=== PATIENT | female | born 1950 | race Caucasian/White ===

== ENCOUNTER 2018-06-30 11:15 | Emergency (ER) | payer MEDICARE, MEDICAID ==
[~2018-06-30] VITALS: Ht 162.6 cm; Wt 99.8 kg
[~2018-06-30 11:15] MED LIST: ALPR1T PO; BACL10TA PO; CLON0.5T3 PO; HYDR-3720 PO; IBUP-15 PO; LISI1TAB PO; LISI1TAB10 PO; LISI20TA PO; OMEP-10 PO; PHEN37.555 PO; SIMV20TA3 PO; TEMA7.5C PO; TEMA7.5C2 PO; TRAM50TA2 PO; TRAZ50TA67 PO; VILA40TA PO
--- NOTE | 2018-06-30 11:29 | ED Cough/URI ---
General Chief Complaint: Respiratory Problems Stated Complaint: COPD;SOB Source: patient Exam Limitations: no limitations History of Present Illness Date Seen by Provider: Jun 30, 2018 Time Seen by Provider: 11:26 Initial Comments Patient driven to ER by private vehicle by [facility] staff with reports of hypoxia. Patient had a regularly scheduled visit today at [facility]. She was noticed to have a pulse oximetry reading of 83% on room air. She does smoke cigarettes about one pack per day. She also recently returned from [place] visiting her sister who is dying of COPD. While there she began smoking more than usual. Upon arrival back to [place] she reports a productive cough and worsening shortness of breath. However, she states that she's had an increase in productive cough and shortness of breath and wheezing for about 3 weeks. She's also had some rhinorrhea. No fevers or chills. No swelling in either of her leg. She was given 3 L of oxygen per nasal cannula and driven to the emergency room. Timing/Duration: constant, getting worse Severity/Quality: moderate Prior Episodes/Possible Cause: occasional episodes Modifying Factors: Improves With Coughing Associated Symptoms: cough, nasal congestion, shortness of breath, wheezing Allergies and Home Medications Allergies Coded Allergies: NKANo Known Allergies (Verified Allergy, Unknown, 11/13/08) fentanyl (Unverified Allergy, Unknown, 01/25/13) Uncoded Allergies: phentanyl (Allergy, Unknown, 06/30/18) Home Medications Albuterol Sulfate 2.5 Mg/3 Ml Vial.neb, 2.5 MG IH Q4H PRN for WHEEZING Prescribed by: ZARA JIMENEZ on 06/30/18 1304 Alprazolam 1 Mg Tablet, 1 MG PO TID PRN, (Reported) ANXIETY Azithromycin 250 Mg Tablet, 250 MG PO UD TAKE 2 TABLETS ON DAY ONE THEN TAKE 1 TABLET DAILY FOR FOUR MORE DAYS Prescribed by: ZARA JIMENEZ on 06/30/18 1304 Hctz/Lisinopril 1 Tab Tablet, 1 TAB PO DAILY, (Reported) Hydrocodone Bit/Acetaminophen 1 Ea Tab, 1 TAB PO QID PRN, (Reported) MODERATE PAIN Ibuprofen 200 Mg Tablet, 400 MG PO Q4HR PRN, (Reported) MILD PAIN Omeprazole 20 Mg Capsule.dr, 20 MG PO DAILY, (Reported) Prednisone 20 Mg Tab, 40 MG PO DAILY Prescribed by: ZARA JIMENEZ on 06/30/18 1304 Simvastatin 20 Mg Tablet, 20 MG PO HS, (Reported) Patient Home Medication List Home Medication List Reviewed: Yes Review of Systems Review of Systems Constitutional: see HPI; No chills, No fever EENTM: see HPI Respiratory: see HPI, cough, short of breath, wheezing Cardiovascular: no symptoms reported Genitourinary: no symptoms reported Musculoskeletal: no symptoms reported Skin: no symptoms reported Psychiatric/Neurological: No Symptoms Reported Hematologic/Lymphatic: No Symptoms Reported Immunological/Allergic: no symptoms reported Past Gkvfmtg-Zjopgv-Cbdrie Hx Immunizations Up To Date Date of Influenza Vaccine: Nov 22, 2011 Past Medical History Reproductive Disorders: No Physical Exam Vital Signs - First Documented 06/30/18 11:23 Pulse 78 Resp 22 B/P (MAP) 126/71 (89) Pulse Ox 93 O2 Delivery Room Air Capillary Refill : Height: '" Weight: lbs. oz. kg; BMI Method:Stated General Appearance: WD/WN, no apparent distress Eyes: Bilateral Eye Normal Inspection, Bilateral Eye PERRL HEENT: PERRL/EOMI, normal ENT inspection Neck: non-tender, full range of motion Respiratory: no accessory muscle use, decreased breath sounds, wheezing Cardiovascular: regular rate, rhythm, no edema, no murmur Gastrointestinal: normal bowel sounds, non tender, soft Extremities: normal range of motion, non-tender, normal capillary refill Neurologic/Psychiatric: alert, normal mood/affect, oriented x 3 Skin: normal color, warm/dry Progress/Results/Core Measures Suspected Sepsis SIRS Temperature: Pulse: Respiratory Rate: Laboratory Tests 06/30/18 11:25: White Blood Count 7.6 Blood Pressure / Mean: Laboratory Tests 06/30/18 11:25: Creatinine 0.66, Platelet Count 242, Total Bilirubin 0.3 Results/Orders Lab Results Laboratory Tests Test 06/30/18 11:25 Range/Units White Blood Count 7.6 4.3-11.0 10^3/uL Red Blood Count 4.74 4.35-5.85 10^6/uL Hemoglobin 14.0 11.5-16.0 G/DL Hematocrit 43 35-52 % Mean Corpuscular Volume 91 80-99 FL Mean Corpuscular Hemoglobin 30 25-34 PG Mean Corpuscular Hemoglobin Concent 33 32-36 G/DL Red Cell Distribution Width 13.9 10.0-14.5 % Platelet Count 242 130-400 10^3/uL Mean Platelet Volume 8.6 7.4-10.4 FL Neutrophils (%) (Auto) 53 42-75 % Lymphocytes (%) (Auto) 35 12-44 % Monocytes (%) (Auto) 9 0-12 % Eosinophils (%) (Auto) 3 0-10 % Basophils (%) (Auto) 0 0-10 % Neutrophils # (Auto) 4.0 1.8-7.8 X 10^3 Lymphocytes # (Auto) 2.6 1.0-4.0 X 10^3 Monocytes # (Auto) 0.7 0.0-1.0 X 10^3 Eosinophils # (Auto) 0.2 0.0-0.3 10^3/uL Basophils # (Auto) 0.0 0.0-0.1 10^3/uL Sodium Level 140 135-145 MMOL/L Potassium Level 3.6 3.6-5.0 MMOL/L Chloride Level 99 98-107 MMOL/L Carbon Dioxide Level 30 21-32 MMOL/L Anion Gap 11 5-14 MMOL/L Blood Urea Nitrogen 12 7-18 MG/DL Creatinine 0.66 0.60-1.30 MG/DL Estimat Glomerular Filtration Rate > 60 BUN/Creatinine Ratio 18 Glucose Level 97 70-105 MG/DL Calcium Level 9.6 8.5-10.1 MG/DL Corrected Calcium 9.5 8.5-10.1 MG/DL Total Bilirubin 0.3 0.1-1.0 MG/DL Aspartate Amino Transf (AST/SGOT) 20 5-34 U/L Alanine Aminotransferase (ALT/SGPT) 21 0-55 U/L Alkaline Phosphatase 79 40-136 U/L Total Protein 6.7 6.4-8.2 GM/DL Albumin 4.1 3.2-4.5 GM/DL My Orders Orders - ZARA 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 Cbc With Automated Diff (06/30/18 11:24) Comprehensive Metabolic Panel (06/30/18 11:24) Iv Heplock-Insert (Order) (06/30/18 11:24) Chest 1 View, Ap/Pa Only (06/30/18 11:24) Ct Angio Chest W (06/30/18 11:24) Albuterol/Ipra Inhalation Soln (Duoneb I (06/30/18 11:30) Svn Small Volume Nebulizer (06/30/18 11:24) Methylprednisolone Sod Succ (Solu-Medrol (06/30/18 11:30) Albuterol Pre-Mix Nebs (Rt) (Proventil (06/30/18 11:30) Svn Small Volume Nebulizer (06/30/18 11:24) Iohexol Injection (Omnipaque 350 Mg/Ml 1 (06/30/18 12:15) Ns (Ivpb) (Sodium Chloride 0.9%) (06/30/18 12:15) Contrast Received (Contrast Received) (06/30/18 12:30) Albuterol Pre-Mix Nebs (Rt) (Proventil (06/30/18 13:22) Svn Small Volume Nebulizer (06/30/18 13:22) Medications Given in ED Current Medications Medications Dose Ordered Sig/Chester Route Start Time Stop Time Status Last Admin Dose Admin Albuterol/ Ipratropium 3 ml ONCE ONCE INH 06/30/18 11:30 06/30/18 11:31 DC 06/30/18 11:32 3 ML Iohexol 125 ml ONCE ONCE IV 06/30/18 12:15 06/30/18 12:18 DC 06/30/18 12:41 125 ML Methylprednisolone Sodium Succinate 125 mg ONCE ONCE IVP 06/30/18 11:30 06/30/18 11:31 DC 06/30/18 11:43 125 MG Sodium Chloride 250 ml ONCE ONCE IV 06/30/18 12:15 06/30/18 12:18 DC 06/30/18 12:41 80 ML Vital Signs/I&O 06/30/18 06/30/18 06/30/18 11:23 11:54 13:23 Pulse 78 Resp 22 B/P (MAP) 126/71 (89) Pulse Ox 93 92 94 O2 Delivery Room Air Room Air Room Air Capillary Refill : Progress Note : Progress Note 1135-on arrival to ER oxygen was turned off. She is at 91% on room air for greater than 15 minutes. 1301- she has remained without supplemental oxygen during her ER stay. She is still at 91% on room air at rest and this increases to 94% when she speaks. Her lungs are much more clear with much less wheezing after one DuoNeb and 2 albuterol treatments. She states that she also feels like she is breathing much easier. There is no need to admit her, CT angiogram is unremarkable and there is no pneumonia. We'll do outpatient steroids, nebulizer, antibiotics follow-up. Diagnostic Imaging Diagonstic Imaging: Xray Comments NAME: FRANCE FOLEY [facility] REC#: [id number] PT STATUS: REG ER : 1950 PHYSICIAN: ZARA JIMENEZ APRN ADMIT DATE: 06/30/18/ER Draft Date of Exam:06/30/18 CHEST 1 VIEW, AP/PA ONLY INDICATION: Cough and congestion. TIME OF EXAM: 11:57 a.m. Correlation is made with prior study from 05/23/2012. FINDINGS: The heart size is normal. The pulmonary vascularity is unremarkable. The lungs are clear. No infiltrate, effusion or pneumothorax is detected. IMPRESSION: No acute cardiopulmonary process is detected. Dictated on workstation # [id number] Dict: 06/30/18 1209 Trans: 06/30/18 1211 [id number] Interpreted by: RUSLAN SHAH MD Electronically signed by: NAME: FRANCE FOLEY [facility] REC#: [id number] PT STATUS: REG ER : 1950 PHYSICIAN: ZARA JIMENEZ APRN ADMIT DATE: 06/30/18/ER Draft Date of Exam:06/30/18 CT ANGIO CHEST W PROCEDURE: CT angiography of the chest with contrast. TECHNIQUE: Multiple contiguous axial images were obtained through the chest after uneventful bolus administration of intravenous contrast. Reconstructed CTA MIP acquisitions were also performed. INDICATION: Decreased oxygen saturation and dyspnea. No prior studies are available for comparison. The pulmonary arterial system is without evidence of thromboembolism. No filling defects are seen within central, lobar or segmental branches. The thoracic aorta is normal in caliber. No dissection is seen. No pericardial or pleural fluid is identified. No pulmonary infiltrates, noncalcified nodules or masses are seen. Upper abdomen does show apparent pneumobilia which could be owing to incompetent sphincter. Impression: 1. No evidence of pulmonary embolism or thoracic aortic dissection. 2. Pneumobilia, as described. Dictated on workstation # [id number] Dict: 06/30/18 1247 Trans: 06/30/18 1251 [facility] [id number] Interpreted by: RUSLAN SHAH MD Electronically signed by: Departure Impression Primary Impression: COPD exacerbation Disposition: 01 HOME, SELF-CARE Condition: Stable Departure-Patient Inst. Decision time for Depature: 12:56 Referrals: DEEPAK CARR MD (PCP/Family) Primary Care Physician Patient Instructions: COPD Including Emphysema (DC), Exacerbation of COPD Add. Discharge Instructions: 1. Medication as directed 2. Return to ER for any concerns 3. Follow-up with [facility] on Wednesday. 4. 1 breathing treatments every 4 hours scheduled and an additional treatment every 2 hours if you feel short of breath or excessively queasy. Return to ER for any worsening symptoms. All discharge instructions reviewed with patient and /or family. Voiced understanding. Scripts Albuterol Sulfate (Albuterol Sulfate) 2.5 Mg/3 Ml Vial.neb 2.5 MG IH Q4H PRN for WHEEZING, #25 EA Prov: ZARA JIMENEZ APRN 06/30/18 Azithromycin (Azithromycin) 250 Mg Tablet 250 MG PO UD, #6 TAB TAKE 2 TABLETS ON DAY ONE THEN TAKE 1 TABLET DAILY FOR FOUR MORE DAYS Prov: ZARA JIMENEZ APRN 06/30/18 Prednisone (Prednisone) 20 Mg Tab 40 MG PO DAILY, #8 TAB Prov: ZARA JIMENEZ APRN 06/30/18 ZARA JIMENEZ APRN Jun 30, 2018 11:29
[2018-06-30] MEDS ORDERED: methylPREDNISolone 125 MG (Solu-MEDROL) VIAL IVP ONE (11:30)
[2018-06-30] MEDS ORDERED: RT-ALBUTEROL SULF 2.5 MG/3 ML PRE-MIX VIAL INH SCH ×2 (11:30→13:22)
[2018-06-30] MEDS ORDERED: RT-ALBUTEROL/IPRATROPIUM 3 ML (DUONEB) VIAL INH ONE (11:30)
[2018-06-30 11:51] LABS: BASOPHILS % (AUTO) 0 % (0-10); EOSINOPHILS # (AUTO) 0.2 10^3/uL (0.0-0.3); EOSINOPHILS % (AUTO) 3 % (0-10); HEMATOCRIT 43 % (35-52); LYMPHOCYTES # (AUTO) 2.6 X 10^3 (1.0-4.0); LYMPHOCYTES % (AUTO) 35 % (12-44); MEAN CORPUSCULAR HEMOGLOBIN 30 PG (25-34); MEAN CORPUSCULAR HGB CONC 33 G/DL (32-36); MEAN CORPUSCULAR VOLUME 91 FL (80-99); MEAN PLATELET VOLUME 8.6 FL (7.4-10.4); MONOCYTES # (AUTO) 0.7 X 10^3 (0.0-1.0); MONOCYTES % (AUTO) 9 % (0-12); NEUTROPHILS % (AUTO) 53 % (42-75); PLATELET COUNT 242 10^3/uL (130-400); RED BLOOD COUNT 4.74 10^6/uL (4.35-5.85); RED CELL DISTRIBUTION WIDTH 13.9 % (10.0-14.5); WHITE BLOOD COUNT 7.6 10^3/uL (4.3-11.0)
[2018-06-30 12:09] LABS: ALANINE AMINOTRANSFERASE 21 U/L (0-55); ALBUMIN 4.1 GM/DL (3.2-4.5); ALKALINE PHOSPHATASE 79 U/L (40-136); BILIRUBIN,TOTAL 0.3 MG/DL (0.1-1.0); BUN/CREATININE RATIO 18; CALCIUM 9.6 MG/DL (8.5-10.1); CARBON DIOXIDE 30 MMOL/L (21-32); CHLORIDE 99 MMOL/L (98-107); CREATININE SERUM 0.66 MG/DL (0.60-1.30); GFR ESTIMATED > 60; GLUCOSE 97 MG/DL (70-105); POTASSIUM 3.6 MMOL/L (3.6-5.0); SODIUM 140 MMOL/L (135-145); TOTAL PROTEIN 6.7 GM/DL (6.4-8.2)
--- NOTE | 2018-06-30 12:12 | Diagnostic Imaging Report ---
INDICATION: Cough and congestion. TIME OF EXAM: 11:57 a.m. Correlation is made with prior study from 05/23/2012. FINDINGS: The heart size is normal. The pulmonary vascularity is unremarkable. The lungs are clear. No infiltrate, effusion or pneumothorax is detected. IMPRESSION: No acute cardiopulmonary process is detected. Dictated by: Dictated on workstation # [id number]
[2018-06-30] MEDS ORDERED: NS 250 ML (IVPB) BAG IV ONE (12:15)
[2018-06-30] MEDS ORDERED: IOHEXOL 350 MG/ML 150 ML (OMNIPAQUE 350) VIAL IV ONE (12:15)
[2018-06-30] MEDS ORDERED: RECEIVED CONTRAST (Hold Metformin) IV SCH (12:30)
--- NOTE | 2018-06-30 12:52 | Diagnostic Imaging Report ---
PROCEDURE: CT angiography of the chest with contrast. TECHNIQUE: Multiple contiguous axial images were obtained through the chest after uneventful bolus administration of intravenous contrast. Reconstructed CTA MIP acquisitions were also performed. INDICATION: Decreased oxygen saturation and dyspnea. No prior studies are available for comparison. The pulmonary arterial system is without evidence of thromboembolism. No filling defects are seen within central, lobar or segmental branches. The thoracic aorta is normal in caliber. No dissection is seen. No pericardial or pleural fluid is identified. No pulmonary infiltrates, noncalcified nodules or masses are seen. Upper abdomen does show apparent pneumobilia which could be owing to incompetent sphincter. Impression: 1. No evidence of pulmonary embolism or thoracic aortic dissection. 2. Pneumobilia, as described. Dictated by: Dictated on workstation # [id number]
[2018-06-30] MEDS ORDERED: PRD20T PO (13:04)
[2018-06-30] MEDS ORDERED: AZIT250T12 PO (13:04)
[2018-06-30] MEDS ORDERED: ALBU2.5V4 IH (13:04)
[2018-06-30 13:35] VITALS: BP 121/70
== END 2018-06-30 13:35 | disposition home or self-care (01) ==
LOC: EDUNIT# 11:15 → ER 11:16
DX: J44.1 Chronic obstructive pulmonary disease with (acute) exacerbation (principal); F17.210 Nicotine dependence, cigarettes, uncomplicated; Z79.52 Long term (current) use of systemic steroids; Z88.8 Allergy status to other drugs, medicaments and biological substances; Z79.51 Long term (current) use of inhaled steroids
CPT/HCPCS: 36415; 71045; 71275; 80053; 85025; 94640; 96374

== ENCOUNTER 2019-03-23 19:12 | Emergency (ER) | payer MEDICARE, MEDICAID ==
[~2019-03-23] VITALS: Ht 162.6 cm; Wt 99.8 kg
[~2019-03-23 19:12] MED LIST changes: +ALBU2.5V4 IH; +AZIT250T12 PO; +PRD20T PO
[2019-03-23] MEDS ORDERED: RT-ALBUTEROL/IPRATROPIUM 3 ML (DUONEB) VIAL ONE (19:19)
[2019-03-23 19:26] LABS: ABG BASE EXCESS 7.9 MMOL/L (-2.5-2.5); ABG OXYGEN SATURATION 93 % (94-100); ABG PCO2 45 MMHG (35-45); ABG PH 7.46 (7.37-7.43); ABG PO2 60 MMHG (79-93); ABG TCO2 33.6 MMOL/L (21.0-31.0); ALLENS TEST POSITIVE
[2019-03-23 19:27] LABS: BASOPHILS % (AUTO) 1 % (0-10); EOSINOPHILS # (AUTO) 0.2 10^3/uL (0.0-0.3); EOSINOPHILS % (AUTO) 3 % (0-10); HEMATOCRIT 44 % (35-52); HEMOGLOBIN 14.9 G/DL (11.5-16.0); INSPIRED O2 N; LYMPHOCYTES # (AUTO) 2.6 X 10^3 (1.0-4.0); LYMPHOCYTES % (AUTO) 31 % (12-44); MEAN CORPUSCULAR HEMOGLOBIN 30 PG (25-34); MEAN CORPUSCULAR HGB CONC 34 G/DL (32-36); MEAN CORPUSCULAR VOLUME 90 FL (80-99); MEAN PLATELET VOLUME 8.8 FL (7.4-10.4); MONOCYTES % (AUTO) 12 % (0-12); NEUTROPHILS # (AUTO) 4.5 X 10^3 (1.8-7.8); NEUTROPHILS % (AUTO) 54 % (42-75); PATIENT TEMP 96.7; PLATELET COUNT 286 10^3/uL (130-400); VENTILATOR NO; WHITE BLOOD COUNT 8.4 10^3/uL (4.3-11.0)
[2019-03-23] MEDS ORDERED: CEFU250T80 PO (19:28)
[2019-03-23] MEDS ORDERED: ALBU2.5V4 INH (19:28)
[2019-03-23] MEDS ORDERED: PRED5TAB PO (19:28)
--- NOTE | 2019-03-23 19:28 | ED Respiratory ---
General Chief Complaint: Respiratory Problems Stated Complaint: SOB Source: patient Exam Limitations: no limitations History of Present Illness Date Seen by Provider: Mar 23, 2019 Time Seen by Provider: 19:25 Initial Comments To ER per private vehicle from home with reports of shortness of breath 3 days associated with a cough that is productive and unusual for her. She is currently on Chantix in an attempt to quit smoking, currently still smokes but has only had 3 cigarettes in the past 3 days. No fevers. Does not wear oxygen at home. Timing/Duration: constant, getting worse Severity: moderate Associated Symptoms: cough, shortness of breath, wheezing Allergies and Home Medications Allergies Coded Allergies: NKANo Known Allergies (Verified Allergy, Unknown, 11/13/08) fentanyl (Unverified Allergy, Unknown, 01/25/13) Uncoded Allergies: phentanyl (Allergy, Unknown, 06/30/18) Home Medications Albuterol Sulfate 2.5 Mg/3 Ml Vial.neb, 2.5 MG IH Q4H PRN for WHEEZING Prescribed by: ZARA JIMENEZ on 06/30/18 1304 Albuterol Sulfate 2.5 Mg/3 Ml Vial.neb, 2.5 MG INH Q4H PRN for WHEEZING Prescribed by: ZARA JIMENEZ on 03/23/191927 Alprazolam 1 Mg Tablet, 1 MG PO TID PRN, (Reported) ANXIETY Azithromycin 250 Mg Tablet, 250 MG PO UD TAKE 2 TABLETS ON DAY ONE THEN TAKE 1 TABLET DAILY FOR FOUR MORE DAYS Prescribed by: ZAAR JIMENEZ on 06/30/18 1304 Cefuroxime Axetil 250 Mg Tablet, 250 MG PO BID Prescribed by: ZARA JIMENEZ on 03/23/191927 Hctz/Lisinopril 1 Tab Tablet, 1 TAB PO DAILY, (Reported) Hydrocodone Bit/Acetaminophen 1 Ea Tab, 1 TAB PO QID PRN, (Reported) MODERATE PAIN Ibuprofen 200 Mg Tablet, 400 MG PO Q4HR PRN, (Reported) MILD PAIN Omeprazole 20 Mg Capsule.dr, 20 MG PO DAILY, (Reported) Prednisone 20 Mg Tab, 40 MG PO DAILY Prescribed by: ZARA JIMENEZ on 06/30/18 1304 Prednisone 5 Mg Tablet, 40 MG PO DAILY Prescribed by: ZARA JIMENEZ on 03/23/191927 Simvastatin 20 Mg Tablet, 20 MG PO HS, (Reported) Patient Home Medication List Home Medication List Reviewed: Yes Review of Systems Review of Systems Constitutional: see HPI EENTM: see HPI Respiratory: see HPI, cough, short of breath, wheezing Cardiovascular: no symptoms reported Genitourinary: no symptoms reported Musculoskeletal: no symptoms reported Skin: no symptoms reported Psychiatric/Neurological: No Symptoms Reported Past [place]q-[place] Hx Patient Social History Type Used: Cigarettes 2nd Hand Smoke Exposure: Yes Recent Foreign Travel: No Contact w/Someone Who Travel: No Recent Hopitalizations: No Immunizations Up To Date Tetanus Booster (TDap): Less than 5yrs Date of Influenza Vaccine: Nov 22, 2011 Seasonal Allergies Seasonal Allergies: Yes Past Medical History Surgeries: Yes (carpal tunnel; "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") Section, Gallbladder Respiratory: Yes Sleep Apnea Currently Using CPAP: No Currently Using BIPAP: No Cardiac: Yes High Cholesterol, Hypertension Neurological: Yes (chronic back) Reproductive Disorders: No SPOOLER History: Menopausal Sexually Transmitted Disease: No Genitourinary: No Gastrointestinal: Yes (HERNIA) Hiatal Hernia, Gall Bladder Disease Musculoskeletal: No Degenerate Disk Disease, Chronic Back Pain Endocrine: Yes Diabetes, Non-Insulin dep HEENT: No Cancer: No Psychosocial: Yes Anxiety, Depression Blood Disorders: No Physical Exam Vital Signs - First Documented 03/23/19 03/23/19 19:26 19:30 Temp 96.4 Pulse 75 Resp 26 B/P (MAP) 127/99 (108) Pulse Ox 97 O2 Delivery Room Air Capillary Refill : Height: 5'4.00" Weight: 220lbs. oz. 99.051098mz; BMI Method:Stated General Appearance: WD/WN, mild distress Eyes: Bilateral Eye Normal Inspection, Bilateral Eye PERRL HEENT: PERRL/EOMI, normal ENT inspection Neck: non-tender, full range of motion Respiratory: no respiratory distress, no accessory muscle use Gastrointestinal: normal bowel sounds, non tender, soft Extremities: normal range of motion, non-tender Neurologic/Psychiatric: alert, normal mood/affect, oriented x 3 Skin: normal color, warm/dry Progress/Results/Core Measures Suspected Sepsis SIRS Temperature: Pulse: Respiratory Rate: Laboratory Tests 03/23/19 19:15: White Blood Count 8.4 Blood Pressure / Mean: Laboratory Tests 03/23/19 19:15: Creatinine 0.75, Platelet Count 286, Total Bilirubin 0.2 Results/Orders Lab Results Laboratory Tests Test 03/23/19 19:15 Range/Units White Blood Count 8.4 4.3-11.0 10^3/uL Red Blood Count 4.93 4.35-5.85 10^6/uL Hemoglobin 14.9 11.5-16.0 G/DL Hematocrit 44 35-52 % Mean Corpuscular Volume 90 80-99 FL Mean Corpuscular Hemoglobin 30 25-34 PG Mean Corpuscular Hemoglobin Concent 34 32-36 G/DL Red Cell Distribution Width 13.0 10.0-14.5 % Platelet Count 286 130-400 10^3/uL Mean Platelet Volume 8.8 7.4-10.4 FL Neutrophils (%) (Auto) 54 42-75 % Lymphocytes (%) (Auto) 31 12-44 % Monocytes (%) (Auto) 12 0-12 % Eosinophils (%) (Auto) 3 0-10 % Basophils (%) (Auto) 1 0-10 % Neutrophils # (Auto) 4.5 1.8-7.8 X 10^3 Lymphocytes # (Auto) 2.6 1.0-4.0 X 10^3 Monocytes # (Auto) 1.0 0.0-1.0 X 10^3 Eosinophils # (Auto) 0.2 0.0-0.3 10^3/uL Basophils # (Auto) 0.0 0.0-0.1 10^3/uL Blood Gas Puncture Site LEFT RADIAL Blood Gas Patient Temperature 96.7 Arterial Blood pH 7.46 H 7.37-7.43 Arterial Blood Partial Pressure CO2 45 35-45 MMHG Arterial Blood Partial Pressure O2 60 L 79-93 MMHG Arterial Blood HCO3 32 H 23-27 MMOL/L Arterial Blood Total CO2 33.6 H 21.0-31.0 MMOL/L Arterial Blood Oxygen Saturation 93 L 94-100 % Arterial Blood Base Excess 7.9 H -2.5-2.5 MMOL/L Dwayne Test POSITIVE Blood Gas Ventilator Setting NO Blood Gas Inspired Oxygen N Sodium Level 142 135-145 MMOL/L Potassium Level 3.3 L 3.6-5.0 MMOL/L Chloride Level 96 L 98-107 MMOL/L Carbon Dioxide Level 31 21-32 MMOL/L Anion Gap 15 H 5-14 MMOL/L Blood Urea Nitrogen 12 7-18 MG/DL Creatinine 0.75 0.60-1.30 MG/DL Estimat Glomerular Filtration Rate > 60 BUN/Creatinine Ratio 16 Glucose Level 150 H 70-105 MG/DL Calcium Level 10.3 H 8.5-10.1 MG/DL Corrected Calcium 9.9 8.5-10.1 MG/DL Total Bilirubin 0.2 0.1-1.0 MG/DL Aspartate Amino Transf (AST/SGOT) 11 5-34 U/L Alanine Aminotransferase (ALT/SGPT) 17 0-55 U/L Alkaline Phosphatase 93 40-136 U/L Total Protein 7.5 6.4-8.2 GM/DL Albumin 4.5 3.2-4.5 GM/DL My Orders Orders - ZARA 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 [employer]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 Albuterol/Ipra Inhalation Soln (Duoneb I (03/23/19 19:30) Methylprednisolone Sod Succ (Solu-Medrol (03/23/19 19:30) Svn Small Volume Nebulizer (03/23/19 19:22) Cbc With Automated Diff (03/23/19 19:22) Comprehensive Metabolic Panel (03/23/19 19:22) BNP (03/23/19 19:22) Chest 1 View, Ap/Pa Only (03/23/19 19:22) Ed Iv/Invasive Line Start (03/23/19 19:22) Arterial Blood Gas (03/23/19 19:22) Albuterol/Ipra Inhalation Soln (Duoneb I (03/23/19 19:19) Cephalexin Capsule (Keflex Capsule) (03/23/19 19:30) Rx-Albuterol Inhaler (Rx-Proair) (03/23/19 19:29) Lorazepam Injection (Ativan Injection) (03/23/19 19:45) Potassium Chloride (Tablet) (Klor Con Ta (03/23/19 20:00) Medications Given in ED Current Medications Medications Dose Ordered Sig/Chester Route Start Time Stop Time Status Last Admin Dose Admin Albuterol/ Ipratropium 3 ml ONCE ONCE INH 03/23/19 19:30 03/23/19 19:31 DC 03/23/19 19:26 3 ML Methylprednisolone Sodium Succinate 125 mg ONCE ONCE IVP 03/23/19 19:30 03/23/19 19:31 DC 03/23/19 19:34 125 MG Vital Signs/I&O 03/23/19 03/23/19 19:26 19:30 Temp 96.4 Pulse 75 Resp 26 B/P (MAP) 127/99 (108) Pulse Ox 97 100 O2 Delivery Room Air Nasal Cannula Capillary Refill : Diagnostic Imaging Diagonstic Imaging: Xray Plain Films/CT/US/NM/MRI: chest Comments NAME: FRANCE FOLEY [facility] REC#: [id number] PT STATUS: REG ER : 1950 PHYSICIAN: ZARA JIMENEZ [employer] ENGINEER ADMIT DATE: 03/23/19/ER Signed Date of Exam:03/23/19 CHEST 1 VIEW, AP/PA ONLY INDICATION: Shortness of breath Portable chest 7:33 PM Heart size and pulmonary vascularity are normal. Lungs are clear. There are no effusions or pneumothoraces. IMPRESSION: Negative chest Dictated by: Dictated on workstation # [id number] Dict: 03/23/191939 Trans: 03/23/191941 [facility] [id number] Interpreted by: DEBBIE GREENBERG MD Electronically signed by: DEBBIE GREENBERG MD 03/23/191941 Departure Impression Primary Impression: COPD exacerbation Disposition: 01 HOME, SELF-CARE Condition: Stable Departure-Patient Inst. Decision time for Depature: 19:26 Referrals: ANALY COREA MD (PCP/Family) Primary Care Physician Patient Instructions: Exacerbation of COPD Add. Discharge Instructions: 1. Medication as directed 2. Return to ER for any concerns 3. All discharge instructions reviewed with patient and/or family. Voiced understanding. Scripts Albuterol Sulfate (Albuterol Sulfate) 2.5 Mg/3 Ml Vial.neb 2.5 MG INH Q4H PRN for WHEEZING, #50 EA 1 Refill Prov: ZARA JIMENEZ APRN 03/23/19 Cefuroxime Axetil (Cefuroxime) 250 Mg Tablet 250 MG PO BID, #10 TAB Prov: ZARA JIMENEZ APRN 03/23/19 Prednisone (Prednisone) 5 Mg Tablet 40 MG PO DAILY, #32 TAB Prov: ZARA JIMENEZ APRN 03/23/19 ZARA JIMENEZ APRN Mar 23, 2019 19:28
[2019-03-23] MEDS ORDERED: RX-ALBUTEROL INHALER (PROAIR) 8 GM IH STA (19:29)
[2019-03-23] MEDS ORDERED: CEPHALEXIN 250 MG (KEFLEX) CAP PO ONE (19:30)
[2019-03-23] MEDS ORDERED: RT-ALBUTEROL/IPRATROPIUM 3 ML (DUONEB) VIAL INH ONE (19:30)
[2019-03-23] MEDS ORDERED: methylPREDNISolone 125 MG (Solu-MEDROL) VIAL IVP ONE (19:30)
[2019-03-23] MEDS ORDERED: LORazepam INJ 2 MG/ML (ATIVAN) VIAL IVP PRN (19:45)
--- NOTE | 2019-03-23 19:45 | Diagnostic Imaging Report ---
INDICATION: Shortness of breath Portable chest 7:33 PM Heart size and pulmonary vascularity are normal. Lungs are clear. There are no effusions or pneumothoraces. IMPRESSION: Negative chest Dictated by: Dictated on workstation # [id number]
[2019-03-23 19:53] LABS: ALANINE AMINOTRANSFERASE 17 U/L (0-55); ALBUMIN 4.5 GM/DL (3.2-4.5); ALKALINE PHOSPHATASE 93 U/L (40-136); BILIRUBIN,TOTAL 0.2 MG/DL (0.1-1.0); BUN/CREATININE RATIO 16; CALCIUM 10.3 MG/DL (8.5-10.1); CARBON DIOXIDE 31 MMOL/L (21-32); CHLORIDE 96 MMOL/L (98-107); CREATININE SERUM 0.75 MG/DL (0.60-1.30); GFR ESTIMATED > 60; GLUCOSE 150 MG/DL (70-105); POTASSIUM 3.3 MMOL/L (3.6-5.0); SODIUM 142 MMOL/L (135-145); TOTAL PROTEIN 7.5 GM/DL (6.4-8.2)
[2019-03-23] MEDS ORDERED: KCL 10 MEQ TAB (MICRO K) PO ONE (20:00)
[2019-03-23] MEDS ORDERED: RX-ALBUTEROL NEB 2.5 MG/3 ML PACK #5 IH STA (20:10)
[2019-03-23 20:15] VITALS: BP 129/77
== END 2019-03-23 20:23 | disposition home or self-care (01) ==
LOC: EDUNIT# 19:12 → ER 19:13
DX: J44.1 Chronic obstructive pulmonary disease with (acute) exacerbation (principal); G47.30 Sleep apnea, unspecified; I10 Essential (primary) hypertension; E78.00 Pure hypercholesterolemia, unspecified; E11.9 Type 2 diabetes mellitus without complications; F41.9 Anxiety disorder, unspecified; F32.9 Major depressive disorder, single episode, unspecified; Z88.8 Allergy status to other drugs, medicaments and biological substances; Z79.52 Long term (current) use of systemic steroids; Z78.0 Asymptomatic menopausal state; Z98.890 Other specified postprocedural states; Z87.19 Personal history of other diseases of the digestive system
CPT/HCPCS: 36415; 71045; 80053; 82805; 83880; 85025; 94640

== ENCOUNTER 2019-07-24 08:15 | Emergency (ER) | payer MEDICARE, MEDICAID ==
[~2019-07-24] VITALS: Ht 165 cm; Wt 95.0 kg
[~2019-07-24 08:15] MED LIST changes: +ALBU2.5V4 INH; +CEFU250T80 PO; +PRED5TAB PO
[2019-07-24] MEDS ORDERED: RT-ALBUTEROL/IPRATROPIUM 3 ML (DUONEB) VIAL ONE (08:30)
--- NOTE | 2019-07-24 09:18 | ED Respiratory ---
General Chief Complaint: Respiratory Problems Stated Complaint: SOA Source: patient Exam Limitations: no limitations History of Present Illness Date Seen by Provider: Jul 24, 2019 Time Seen by Provider: 09:14 Initial Comments The patient is a 69-year-old white female who was brought to the emergency room by ambulance with complaints of increasing shortness of breath. She states that she has had COPD for some time. She had stopped smoking for 3 years but has s tarted again. She denies any fever. She reports that over the last several days she has had increasing shortness of breath despite use of nebulizer and occasionally her MDI. She states that she has noted considerable tremulousness after these treatments. Timing/Duration: week, getting worse Prior Episodes/Possible Cause: occasional episodes Modifying Factors: Improves With Albuterol Inhaler, Improves With Albuterol Nebulizer Associated Symptoms: cough, shortness of breath, wheezing Allergies and Home Medications Allergies Coded Allergies: NKANo Known Allergies (Verified Allergy, Unknown, 11/13/08) fentanyl (Unverified Allergy, Unknown, 01/25/13) Uncoded Allergies: phentanyl (Allergy, Unknown, 06/30/18) Home Medications Albuterol Sulfate 2.5 Mg/3 Ml Vial.neb, 2.5 MG IH Q4H PRN for WHEEZING Prescribed by: ZARA JIMENEZ on 06/30/18 1304 Albuterol Sulfate 2.5 Mg/3 Ml Vial.neb, 2.5 MG INH Q4H PRN for WHEEZING Prescribed by: ZARA JIMENEZ on 03/23/191927 Alprazolam 1 Mg Tablet, 1 MG PO TID PRN, (Reported) ANXIETY Azithromycin 250 Mg Tablet, 250 MG PO UD TAKE 2 TABLETS ON DAY ONE THEN TAKE 1 TABLET DAILY FOR FOUR MORE DAYS Prescribed by: ZARA JIMENEZ on 06/30/18 1304 Cefuroxime Axetil 250 Mg Tablet, 250 MG PO BID Prescribed by: ZARA JIMENEZ on 03/23/191927 Hctz/Lisinopril 1 Tab Tablet, 1 TAB PO DAILY, (Reported) Hydrocodone Bit/Acetaminophen 1 Ea Tab, 1 TAB PO QID PRN, (Reported) MODERATE PAIN Ibuprofen 200 Mg Tablet, 400 MG PO Q4HR PRN, (Reported) MILD PAIN Omeprazole 20 Mg Capsule.dr, 20 MG PO DAILY, (Reported) Prednisone 20 Mg Tab, 40 MG PO DAILY Prescribed by: ZARA JIMENEZ on 06/30/18 1304 Prednisone 5 Mg Tablet, 40 MG PO DAILY Prescribed by: ZARA JIMENEZ on 03/23/19 1928 Simvastatin 20 Mg Tablet, 20 MG PO HS, (Reported) Patient Home Medication List Home Medication List Reviewed: Yes Review of Systems Review of Systems Constitutional: see HPI EENTM: no symptoms reported Respiratory: see HPI, dyspnea on exertion Cardiovascular: palpitations (after use of nebulizer) Gastrointestinal: no symptoms reported Genitourinary: no symptoms reported Musculoskeletal: no symptoms reported Skin: no symptoms reported Psychiatric/Neurological: No Symptoms Reported Hematologic/Lymphatic: No Symptoms Reported Immunological/Allergic: no symptoms reported Past Krlyeqc-Kyozta-Zjfkng Hx Patient Social History Type Used: Cigarettes 2nd Hand Smoke Exposure: Yes Recent Hopitalizations: No Immunizations Up To Date Tetanus Booster (TDap): Less than 5yrs Date of Influenza Vaccine: Nov 22, 2011 Seasonal Allergies Seasonal Allergies: Yes Past Medical History Surgeries: Yes (carpal tunnel; "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") Section, Gallbladder Respiratory: Yes Sleep Apnea Currently Using CPAP: No Currently Using BIPAP: No Cardiac: Yes High Cholesterol, Hypertension Neurological: Yes (chronic back) 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 oz. 99.243979ug; BMI Method:Stated General Appearance: mild distress, moderate distress, other (appears older than stated age.) Eyes: Bilateral Eye Normal Inspection HEENT: normal ENT inspection Neck: full range of motion Respiratory: other (no wheezing post DuoNeb treatment. Breath sounds are dist ant. 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, no motor/sensory deficits, alert, normal mood/affect, oriented x 3 Skin: normal color, warm/dry, cyanosis, cool, diaphoresis, damp Lymphatic: no adenopathy Progress/Results/Core Measures Suspected Sepsis SIRS Temperature: Pulse: Respiratory Rate: Laboratory Tests 07/24/19 08:25: White Blood Count 8.1 Blood Pressure / Mean: Laboratory Tests 07/24/19 08:25: Creatinine 0.66, Platelet Count 221, Total Bilirubin 0.3 Results/Orders Lab Results Laboratory Tests Test 07/24/19 08:25 Range/Units White Blood Count 8.1 4.3-11.0 10^3/uL Red Blood Count 4.46 4.35-5.85 10^6/uL Hemoglobin 13.3 11.5-16.0 G/DL Hematocrit 40 35-52 % Mean Corpuscular Volume 90 80-99 FL Mean Corpuscular Hemoglobin 30 25-34 PG Mean Corpuscular Hemoglobin Concent 33 32-36 G/DL Red Cell Distribution Width 13.3 10.0-14.5 % Platelet Count 221 130-400 10^3/uL Mean Platelet Volume 9.4 7.4-10.4 FL Neutrophils (%) (Auto) 70 42-75 % Lymphocytes (%) (Auto) 20 12-44 % Monocytes (%) (Auto) 8 0-12 % Eosinophils (%) (Auto) 2 0-10 % Basophils (%) (Auto) 1 0-10 % Neutrophils # (Auto) 5.6 1.8-7.8 X 10^3 Lymphocytes # (Auto) 1.6 1.0-4.0 X 10^3 Monocytes # (Auto) 0.6 0.0-1.0 X 10^3 Eosinophils # (Auto) 0.2 0.0-0.3 10^3/uL Basophils # (Auto) 0.0 0.0-0.1 10^3/uL Sodium Level 139 135-145 MMOL/L Potassium Level 3.3 L 3.6-5.0 MMOL/L Chloride Level 98 98-107 MMOL/L Carbon Dioxide Level 31 21-32 MMOL/L Anion Gap 10 5-14 MMOL/L Blood Urea Nitrogen 12 7-18 MG/DL Creatinine 0.66 0.60-1.30 MG/DL Estimat Glomerular Filtration Rate > 60 BUN/Creatinine Ratio 18 Glucose Level 113 H 70-105 MG/DL Calcium Level 9.8 8.5-10.1 MG/DL Corrected Calcium 9.6 8.5-10.1 MG/DL Total Bilirubin 0.3 0.1-1.0 MG/DL Aspartate Amino Transf (AST/SGOT) 14 5-34 U/L Alanine Aminotransferase (ALT/SGPT) 12 0-55 U/L Alkaline Phosphatase 77 40-136 U/L Total Protein 7.0 6.4-8.2 GM/DL Albumin 4.2 3.2-4.5 GM/DL My Orders Orders - LEWIS AGUILAR MD Albuterol/Ipra Inhalation Soln (Duoneb I (07/24/19 08:30) Cbc With Automated Diff (07/24/19 09:12) Comprehensive Metabolic Panel (07/24/19 09:12) Chest 1 View, Ap/Pa Only (07/24/19 09:12) Medications Given in ED Current Medications Medications Dose Ordered Sig/Chester Route Start Time Stop Time Status Last Admin Dose Admin Albuterol/ Ipratropium 3 ml STK-MED ONCE .ROUTE 07/24/19 08:30 07/24/19 08:32 DC 07/24/19 08:30 3 ML Vital Signs/I&O 07/24/19 08:36 Pulse Ox 96 O2 Delivery Nasal Cannula Capillary Refill : Departure Communication (Admissions) 0955 the patient is breathing comfortably and states she feels much better. Impression Primary Impression: COPD with exacerbation Disposition: 01 HOME, SELF-CARE Condition: Improved Departure-Patient Inst. Decision time for Depature: 09:56 Referrals: ANALY CALDERON MD (PCP/Family) Primary Care Physician Patient Instructions: Chronic Obstructive Pulmonary Disease (COPD), Including Emphysema Add. Discharge Instructions: All discharge instructions reviewed with patient and/or family. Voiced understanding. Use your nebulizer at least twice daily. The MDI should be carried with you when you leave the home. Take the prednisone taper as directed. See Dr. Calderon in one to 2 weeks. Scripts Prednisone (Prednisone) 20 Mg Tab 20 MG PO DAILY, #11 TAB Take 3 tabs(60mg)daily, decrease by 1/2 tab(10mg)daily. Prov: LEWIS AGUILAR MD 07/24/19 LEWIS AGUILAR MD Jul 24, 2019 09:18
[2019-07-24 09:23] LABS: BASOPHILS % (AUTO) 1 % (0-10); EOSINOPHILS # (AUTO) 0.2 10^3/uL (0.0-0.3); EOSINOPHILS % (AUTO) 2 % (0-10); HEMATOCRIT 40 % (35-52); HEMOGLOBIN 13.3 G/DL (11.5-16.0); LYMPHOCYTES # (AUTO) 1.6 X 10^3 (1.0-4.0); LYMPHOCYTES % (AUTO) 20 % (12-44); MEAN CORPUSCULAR HEMOGLOBIN 30 PG (25-34); MEAN CORPUSCULAR HGB CONC 33 G/DL (32-36); MEAN CORPUSCULAR VOLUME 90 FL (80-99); MEAN PLATELET VOLUME 9.4 FL (7.4-10.4); MONOCYTES # (AUTO) 0.6 X 10^3 (0.0-1.0); MONOCYTES % (AUTO) 8 % (0-12); NEUTROPHILS # (AUTO) 5.6 X 10^3 (1.8-7.8); NEUTROPHILS % (AUTO) 70 % (42-75); PLATELET COUNT 221 10^3/uL (130-400); RED CELL DISTRIBUTION WIDTH 13.3 % (10.0-14.5); WHITE BLOOD COUNT 8.1 10^3/uL (4.3-11.0)
[2019-07-24 09:31] LABS: ALANINE AMINOTRANSFERASE 12 U/L (0-55); ALBUMIN 4.2 GM/DL (3.2-4.5); ALKALINE PHOSPHATASE 77 U/L (40-136); BILIRUBIN,TOTAL 0.3 MG/DL (0.1-1.0); BUN/CREATININE RATIO 18; CALCIUM 9.8 MG/DL (8.5-10.1); CARBON DIOXIDE 31 MMOL/L (21-32); CHLORIDE 98 MMOL/L (98-107); CREATININE SERUM 0.66 MG/DL (0.60-1.30); GFR ESTIMATED > 60; GLUCOSE 113 MG/DL (70-105); POTASSIUM 3.3 MMOL/L (3.6-5.0); SODIUM 139 MMOL/L (135-145)
--- NOTE | 2019-07-24 09:35 | Diagnostic Imaging Report ---
Patient History: Shortness of air. Technique: Single frontal view of the chest Comparison: 03/23/2019 FINDINGS: The lung volumes are normal. No focal consolidation is seen. No large pleural effusion or pneumothorax is seen. The cardiomediastinal silhouette is normal in size and contour. No acute osseous abnormality is seen. IMPRESSION: No acute pulmonary abnormality seen. Dictated by: Dictated on workstation # [id number]
[2019-07-24] MEDS ORDERED: PRD20T PO (09:58)
[2019-07-24] MEDS ORDERED: methylPREDNISolone 125 MG (Solu-MEDROL) VIAL IM ONE (10:00)
[2019-07-24 10:12] VITALS: BP 155/81
== END 2019-07-24 10:12 | disposition home or self-care (01) ==
LOC: EDUNIT# 08:15 → ER 08:16
DX: J44.1 Chronic obstructive pulmonary disease with (acute) exacerbation (principal); I10 Essential (primary) hypertension; E11.9 Type 2 diabetes mellitus without complications; F41.9 Anxiety disorder, unspecified; F32.9 Major depressive disorder, single episode, unspecified; E78.00 Pure hypercholesterolemia, unspecified; F17.200 Nicotine dependence, unspecified, uncomplicated; Z88.5 Allergy status to narcotic agent; Z79.52 Long term (current) use of systemic steroids; Z77.22 Contact with and (suspected) exposure to environmental tobacco smoke (acute) (chronic)
CPT/HCPCS: 36415; 71045; 80053; 85025; 94640; 94760

== ENCOUNTER 2019-10-07 14:47 | Inpatient (IN) | payer MEDICARE, MEDICAID ==
[2019-10-07] VITALS (11 sets, daily range): BP systolic 91–118; BP diastolic 58–78
[~2019-10-07] VITALS: Ht 162.6 cm; Wt 107.0 kg
[2019-10-07] MEDS ORDERED: meTOprolol 5 MG/5 ML (LOPRESSOR) VIAL ONE (15:04)
--- NOTE | 2019-10-07 15:07 | ED Cough/URI ---
General Chief Complaint: Respiratory Problems Stated Complaint: SOA Source: patient Exam Limitations: no limitations History of Present Illness Date Seen by Provider: Oct 07, 2019 Time Seen by Provider: 15:06 Initial Comments To ER with shortness of breath for the past several days. States she has COPD. She was here about 2 weeks ago for the same.States she is supposed to wear oxygen at home but does not, hasn't been taking any of her medications either because she feels like they were making her sick. She follows with Santino Corea from [facility]. She has no known history of atrial fibrillation. States she does want to be intubated if necessary. Timing/Duration: constant, getting worse Severity/Quality: productive cough Associated Symptoms: cough, shortness of breath Allergies and Home Medications Allergies Coded Allergies: NKANo Known Allergies (Verified Allergy, Unknown, 11/13/08) fentanyl (Unverified Allergy, Unknown, 01/25/13) Uncoded Allergies: phentanyl (Allergy, Unknown, 06/30/18) Home Medications Albuterol Sulfate 2.5 Mg/3 Ml Vial.neb, 2.5 MG IH Q4H PRN for WHEEZING Prescribed by: ZARA JIMENEZ on 06/30/18 1304 Albuterol Sulfate 2.5 Mg/3 Ml Vial.neb, 2.5 MG INH Q4H PRN for WHEEZING Prescribed by: ZARA JIMENEZ on 03/23/191927 Alprazolam 1 Mg Tablet, 1 MG PO TID PRN, (Reported) ANXIETY Azithromycin 250 Mg Tablet, 250 MG PO UD TAKE 2 TABLETS ON DAY ONE THEN TAKE 1 TABLET DAILY FOR FOUR MORE DAYS Prescribed by: ZARA JIMENEZ on 06/30/18 1304 Cefuroxime Axetil 250 Mg Tablet, 250 MG PO BID Prescribed by: ZARA JIMENEZ on 03/23/191927 Hctz/Lisinopril 1 Tab Tablet, 1 TAB PO DAILY, (Reported) Hydrocodone Bit/Acetaminophen 1 Ea Tab, 1 TAB PO QID PRN, (Reported) MODERATE PAIN Ibuprofen 200 Mg Tablet, 400 MG PO Q4HR PRN, (Reported) MILD PAIN Omeprazole 20 Mg Capsule.dr, 20 MG PO DAILY, (Reported) Prednisone 20 Mg Tab, 40 MG PO DAILY Prescribed by: ZARA JIMENEZ on 06/30/18 1304 Prednisone 5 Mg Tablet, 40 MG PO DAILY Prescribed by: ZARA JIMENEZ on 03/23/191927 Prednisone 20 Mg Tab, 20 MG PO DAILY Take 3 tabs(60mg)daily, decrease by 1/2 tab(10mg)daily. Prescribed by: LEWIS AGUILAR on 07/24/19957 Simvastatin 20 Mg Tablet, 20 MG PO HS, (Reported) Patient Home Medication List Home Medication List Reviewed: Yes Review of Systems Review of Systems Constitutional: see HPI; No chills, No fever Respiratory: see HPI, cough, dyspnea on exertion, short of breath Cardiovascular: no symptoms reported Genitourinary: no symptoms reported Musculoskeletal: no symptoms reported Skin: no symptoms reported Psychiatric/Neurological: No Symptoms Reported Past Nnfsagm-Ennxwl-Esjvnd Hx Patient Social History Type Used: Cigarettes 2nd Hand Smoke Exposure: Yes Recent Foreign Travel: No Contact w/Someone Who Travel: No Recent Hopitalizations: No Immunizations Up To Date Tetanus Booster (TDap): Less than 5yrs Date of Influenza Vaccine: Nov 22, 2011 Seasonal Allergies Seasonal Allergies: Yes Past Medical History Surgeries: Yes (carpal tunnel; "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") Section, Gallbladder Respiratory: Yes Sleep Apnea Currently Using CPAP: No Currently Using BIPAP: No Cardiac: Yes High Cholesterol, Hypertension Neurological: Yes (chronic back) Reproductive Disorders: No 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 oz. 99.435790fw; 34.00 BMI Method:Stated General Appearance: WD/WN, moderate distress, other (speaks in short phrases. Oxygen saturation 73% with good waveform on arrival. Placed on oxygen mask at 10 L, subsequent increase in SPO2 of 90%. Heart rate narrow complex regular at 150.) HEENT: PERRL/EOMI, normal ENT inspection Neck: non-tender, full range of motion Respiratory: no respiratory distress, no accessory muscle use, decreased breath sounds Cardiovascular: no murmur, tachycardia Gastrointestinal: normal bowel sounds, non tender, soft Extremities: normal range of motion, non-tender Neurologic/Psychiatric: alert, normal mood/affect, oriented x 3 Skin: normal color, warm/dry Focused Exam Lactate Level 10/07/19 15:00: Lactic Acid Level 2.34*H Lactic Acid Level Laboratory Tests Test 10/07/19 15:00 Lactic Acid Level 2.34 MMOL/L (0.50-2.00) *H Progress/Results/Core Measures Suspected Sepsis SIRS Temperature: Pulse: Respiratory Rate: Laboratory Tests 10/07/19 15:00: White Blood Count 46.4*H Blood Pressure / Mean: 10/07/19 15:00: Lactic Acid Level 2.34*H Laboratory Tests 10/07/19 15:00: Creatinine 0.73, INR Comment 1.1, Platelet Count 526H, Total Bilirubin 1.8H Results/Orders Lab Results Laboratory Tests Test 10/07/19 14:58 10/07/19 15:00 Range/Units Blood Gas Puncture Site LT RAD Blood Gas Patient Temperature 100.4 Arterial Blood pH 7.46 H 7.37-7.43 Arterial Blood Partial Pressure CO2 49 H 35-45 MMHG Arterial Blood Partial Pressure O2 66 L 79-93 MMHG Arterial Blood HCO3 34 H 23-27 MMOL/L Arterial Blood Total CO2 35.1 H 21.0-31.0 MMOL/L Arterial Blood Oxygen Saturation 92 L 94-100 % Arterial Blood Base Excess 9.6 H -2.5-2.5 MMOL/L Dwayne Test YES-POS Blood Gas Ventilator Setting NO Blood Gas Inspired Oxygen 6 White Blood Count 46.4 *H 4.3-11.0 10^3/uL Red Blood Count 4.38 4.35-5.85 10^6/uL Hemoglobin 12.8 11.5-16.0 G/DL Hematocrit 38 35-52 % Mean Corpuscular Volume 86 80-99 FL Mean Corpuscular Hemoglobin 29 25-34 PG Mean Corpuscular Hemoglobin Concent 34 32-36 G/DL Red Cell Distribution Width 13.9 10.0-14.5 % Platelet Count 526 H 130-400 10^3/uL Mean Platelet Volume 9.2 7.4-10.4 FL Neutrophils (%) (Auto) 94 H 42-75 % Lymphocytes (%) (Auto) 4 L 12-44 % Monocytes (%) (Auto) 3 0-12 % Eosinophils (%) (Auto) 0 0-10 % Basophils (%) (Auto) 0 0-10 % Neutrophils # (Auto) 43.4 H 1.8-7.8 X 10^3 Lymphocytes # (Auto) 1.7 1.0-4.0 X 10^3 Monocytes # (Auto) 1.2 H 0.0-1.0 X 10^3 Eosinophils # (Auto) 0.0 0.0-0.3 10^3/uL Basophils # (Auto) 0.1 0.0-0.1 10^3/uL Neutrophils % (Manual) 82 % Lymphocytes % (Manual) 4 % Monocytes % (Manual) 6 % Metamyelocytes % 2 % Band Neutrophils 6 % Target Cells SLIGHT Stomatocytes SLIGHT Crenated Cell SLIGHT Prothrombin Time 14.6 12.2-14.7 SEC INR Comment 1.1 0.8-1.4 Sodium Level 135 135-145 MMOL/L Potassium Level 2.9 L 3.6-5.0 MMOL/L Chloride Level 88 L 98-107 MMOL/L Carbon Dioxide Level 31 21-32 MMOL/L Anion Gap 16 H 5-14 MMOL/L Blood Urea Nitrogen 23 H 7-18 MG/DL Creatinine 0.73 0.60-1.30 MG/DL Estimat Glomerular Filtration Rate > 60 BUN/Creatinine Ratio 32 Glucose Level 192 H 70-105 MG/DL Lactic Acid Level 2.34 *H 0.50-2.00 MMOL/L Calcium Level 9.6 8.5-10.1 MG/DL Corrected Calcium 10.4 H 8.5-10.1 MG/DL Total Bilirubin 1.8 H 0.1-1.0 MG/DL Aspartate Amino Transf (AST/SGOT) 90 H 5-34 U/L Alanine Aminotransferase (ALT/SGPT) 56 H 0-55 U/L Alkaline Phosphatase 205 H 40-136 U/L Total Protein 6.6 6.4-8.2 GM/DL Albumin 3.0 L 3.2-4.5 GM/DL My Orders Orders - ZARA JIMENEZ PALLIATIVE CARE NURSE PRACTITIONER Cbc With Automated Diff (10/07/19 15:03) Comprehensive Metabolic Panel (10/07/19 15:03) BNP (10/07/19 15:03) Troponin I (10/07/19 15:03) Ekg Tracing (10/07/19 15:03) Thyroid Stimulating Hormone (10/07/19 15:03) Free T4 (Free Thyroxine) (10/07/19 15:03) Ua Culture If Indicated (10/07/19 15:03) Drug Screen Stat (Urine) (10/07/19 15:03) Protime With Inr (10/07/19 15:03) Ns Iv 1000 Ml (Sodium Chloride 0.9%) (10/07/19 15:15) Methylprednisolone Sod Succ (Solu-Medrol (10/07/19 15:15) Metoprolol Tartrate Injection (Lopressor (10/07/19 15:15) Blood Culture (10/07/19 15:03) Lactic Acid Analyzer (10/07/19 15:03) Ekg Tracing (10/07/19 15:03) Metoprolol Tartrate Injection (Lopressor (10/07/19 15:04) Albuterol/Ipra Inhalation Soln (Duoneb I (10/07/19 15:15) Albuterol Pre-Mix Nebs (Rt) (Proventil (10/07/19 15:15) Svn Small Volume Nebulizer (10/07/19 15:07) Svn Small Volume Nebulizer (10/07/19 15:07) Arterial Blood Gas (10/07/19 15:08) Chest 1 View, Ap/Pa Only (10/07/19 15:12) Manual Differential (10/07/19 15:00) Medications Given in ED Current Medications Medications Dose Ordered Sig/Chester Route Start Time Stop Time Status Last Admin Dose Admin Albuterol Sulfate 12.5 mg ONCE ONCE INH 10/07/19 15:15 10/07/19 15:16 DC 10/07/19 15:17 12.5 MG Albuterol/ Ipratropium 3 ml ONCE ONCE INH 10/07/19 15:15 10/07/19 15:16 DC 10/07/19 15:17 3 ML Methylprednisolone Sodium Succinate 125 mg ONCE ONCE IVP 10/07/19 15:15 10/07/19 15:16 DC 10/07/19 15:08 125 MG Metoprolol Tartrate 5 mg ONCE ONCE IV 10/07/19 15:15 10/07/19 15:16 DC 10/07/19 15:07 5 MG Vital Signs/I&O 10/07/19 10/07/19 14:47 15:07 Temp 38.0 Pulse 151 121 Resp 29 29 B/P (MAP) 115/99 (104) Pulse Ox 90 90 O2 Delivery OxyMask O2 Flow Rate 10.00 50.00 Capillary Refill : Diagnostic Imaging Diagonstic Imaging: Xray Plain Films/CT/US/NM/MRI: chest Comments NAME: [facility] REC#: [id number] PT STATUS: REG ER : 1950 PHYSICIAN: ZARA JIMENEZ APRN ADMIT DATE: 10/07/19/ER Draft Date of Exam:10/07/19 CHEST 1 VIEW, AP/PA ONLY CHEST 1 VIEW, AP/PA ONLY. INDICATION: Shortness of breath. COMPARISON: 07/24/2019. FINDINGS: New mass-like consolidation in the right upper lobe. Small right pleural effusion. No pneumothorax. Stable enlargement of cardiac silhouette. IMPRESSION: 1. New right upper lobe pneumonia. 2. Probable small parapneumonic effusion. 3. Advise follow-up PA and lateral chest radiographs in 4 weeks after appropriate medical management to ensure resolution. Dictated on workstation # [id number] Dict: 10/07/19 1539 Trans: 10/07/19 1541 [id number] Interpreted by: VICKI CABALLERO MD Electronically signed by: Departure Communication (Admissions) 1518- initially started on BiPAP after oxygen mask. Initial settings 12/5, 50% FiO2 rate of 12. Lopressor 5 mg was given IV for the tachycardia with subsequent rate reduction down to 95. EKG repeated. The blood pressure remained stable. 1535-has arrived and states that she does not have oxygen at home but would like to get oxygen. Impression Primary Impression: Respiratory failure Qualified Codes: J96.01 - Acute respiratory failure with hypoxia; J96.02 - Acute respiratory failure with hypercapnia Disposition: ADMITTED INPATIENT Condition: Improved Admissions Decision to Admit Reason: Admit from ER (General) Decision to Admit/Date: Oct 07, 2019 Time/Decision to Admit Time: 15:11 Departure-Patient Inst. Referrals: SANTINO COREA MD (PCP/Family) Primary Care Physician ZARA JIMENEZ APRN Oct 07, 2019 15:07
[2019-10-07 15:11] LABS: BASOPHILS # (AUTO) 0.1 10^3/uL (0.0-0.1); BASOPHILS % (AUTO) 0 % (0-10); EOSINOPHILS % (AUTO) 0 % (0-10); HEMATOCRIT 38 % (35-52); HEMOGLOBIN 12.8 G/DL (11.5-16.0); LYMPHOCYTES # (AUTO) 1.7 X 10^3 (1.0-4.0); LYMPHOCYTES % (AUTO) 4 % (12-44); MEAN CORPUSCULAR HEMOGLOBIN 29 PG (25-34); MEAN CORPUSCULAR HGB CONC 34 G/DL (32-36); MEAN CORPUSCULAR VOLUME 86 FL (80-99); MEAN PLATELET VOLUME 9.2 FL (7.4-10.4); MONOCYTES # (AUTO) 1.2 X 10^3 (0.0-1.0); MONOCYTES % (AUTO) 3 % (0-12); NEUTROPHILS # (AUTO) 43.4 X 10^3 (1.8-7.8); NEUTROPHILS % (AUTO) 94 % (42-75); PLATELET COUNT 526 10^3/uL (130-400); RED CELL DISTRIBUTION WIDTH 13.9 % (10.0-14.5)
[2019-10-07 15:15] LABS: ABG BASE EXCESS 9.6 MMOL/L (-2.5-2.5); ABG OXYGEN SATURATION 92 % (94-100); ABG PCO2 49 MMHG (35-45); ABG PH 7.46 (7.37-7.43); ABG PO2 66 MMHG (79-93); ABG TCO2 35.1 MMOL/L (21.0-31.0)
[2019-10-07] MEDS ORDERED: meTOprolol 5 MG/5 ML (LOPRESSOR) VIAL IV ONE (15:15)
[2019-10-07] MEDS ORDERED: RT-ALBUTEROL/IPRATROPIUM 3 ML (DUONEB) VIAL INH ONE (15:15)
[2019-10-07] MEDS ORDERED: NS IV 1000 ML 1,000 ML IV SCH (15:15)
[2019-10-07] MEDS ORDERED: methylPREDNISolone 125 MG (Solu-MEDROL) VIAL IVP ONE (15:15)
[2019-10-07] MEDS ORDERED: RT-ALBUTEROL SULF 2.5 MG/3 ML PRE-MIX VIAL INH ONE (15:15)
[2019-10-07 15:18] LABS: WHITE BLOOD COUNT 46.4 10^3/uL (4.3-11.0)
[2019-10-07 15:19] LABS: ALLENS TEST YES-POS; INSPIRED O2 6; PATIENT TEMP 100.4; VENTILATOR NO
[2019-10-07 15:24] LABS: INR 1.1 (0.8-1.4); PROTHROMBIN TIME PATIENT 14.6 SEC (12.2-14.7)
[2019-10-07 15:31] LABS: ALANINE AMINOTRANSFERASE 56 U/L (0-55); ALKALINE PHOSPHATASE 205 U/L (40-136); BILIRUBIN,TOTAL 1.8 MG/DL (0.1-1.0); BUN/CREATININE RATIO 32; CALCIUM 9.6 MG/DL (8.5-10.1); CARBON DIOXIDE 31 MMOL/L (21-32); CHLORIDE 88 MMOL/L (98-107); CREATININE SERUM 0.73 MG/DL (0.60-1.30); GFR ESTIMATED > 60; GLUCOSE 192 MG/DL (70-105); POTASSIUM 2.9 MMOL/L (3.6-5.0); SODIUM 135 MMOL/L (135-145); TOTAL PROTEIN 6.6 GM/DL (6.4-8.2)
[2019-10-07 15:42] LABS: BAND NEUTROPHILS 6 %; LYMPHOCYTES % (MANUAL) 4 %; MONOCYTES % (MANUAL) 6 %; NEUTROPHILS % (MANUAL) 82 %
--- NOTE | 2019-10-07 15:42 | Diagnostic Imaging Report ---
CHEST 1 VIEW, AP/PA ONLY. INDICATION: Shortness of breath. COMPARISON: 07/24/2019. FINDINGS: New mass-like consolidation in the right upper lobe. Small right pleural effusion. No pneumothorax. Stable enlargement of cardiac silhouette. IMPRESSION: 1. New right upper lobe pneumonia. 2. Probable small parapneumonic effusion. 3. Advise follow-up PA and lateral chest radiographs in 4 weeks after appropriate medical management to ensure resolution. Dictated by: Dictated on workstation # [id number]
[2019-10-07 15:43] LABS: METAMYELOCYTES % 2 %; TARGET CELLS SLIGHT
[2019-10-07 15:44] LABS: CRENATED RBC SLIGHT; STOMATOCYTES SLIGHT
[2019-10-07 15:52] LABS: FREE T4 (FREE THYROXINE) 0.63 NG/DL (0.70-1.48)
[2019-10-07] MEDS ORDERED: PIPERACILLIN SODIUM/TAZOBACTAM 4.5 GM in NS (IVPB) 100 ML IV ONE (16:15)
--- NOTE | 2019-10-07 16:16 | NUR ---
Kaitlyn Han (sister) [phone].
[2019-10-07] MEDS ORDERED: LACTATED RINGERS 1,000 ML IV ONE (16:46)
[2019-10-07] MEDS: LACTATED RINGERS 1,000 ML IV SCH ×2 (16:50→21:03)
[2019-10-07] MEDS ORDERED: ONDANSETRON 4 MG/2 ML (SDV) Z0FRAN IV PRN (17:00)
[2019-10-07] MEDS ORDERED: diphenhydrAMINE 25 MG TAB (BENADRYL) PO PRN (17:15)
[2019-10-07] MEDS ORDERED: ONDANSETRON 4 MG/2 ML (SDV) Z0FRAN IVP PRN (17:15)
[2019-10-07] MEDS ORDERED: CALCIUM CARBONATE 500 MG (TUMS) TAB.CHEW PO PRN (17:15)
[2019-10-07] MEDS ORDERED: RT-ALBUTEROL/IPRATROPIUM 3 ML (DUONEB) VIAL INH PRN (17:15)
[2019-10-07] MEDS ORDERED: DOCUSATE SODIUM 100 MG (COLACE) CAP PO PRN (17:15)
[2019-10-07] MEDS ORDERED: LOPERAMIDE 2 MG (IMODIUM) TABLET PO PRN (17:15)
[2019-10-07] MEDS ORDERED: guaiFENesin/CODEINE (ROBITUSSIN AC) 10ML UDC PO PRN (17:15)
[2019-10-07] MEDS ORDERED: MELATONIN 3 MG TABLET PO PRN (17:15)
[2019-10-07] MEDS ORDERED: morphine INJ 4 MG/ML 1 ML (VIAL/SYRINGE) IVP PRN (17:15)
--- NOTE | 2019-10-07 17:31 | History & Physical-Hospitalist ---
History of Present Illness HPI/Chief Complaint CC: Pneumonia with sepsis and respiratory insufficiency HPI: This is a 69yoWF clinic patient of [facility] who was in the ER recently treated for AECOPD who continues to smoke who presented today to the ER in respiratory distress with O2 saturation of 64% upon arrival. Patient was found to have sepsis and PNA and AECOPD. Patient was placed on Zosyn and IV steroids and Nebs and O2 and biPAP is required. Patient is receiving IVF per protocol. Dr Murrell and DR Ham are consulted for hypoxia and tachycardia respectively. Unable to obtain any details due to biPAP required. Source: patient, RN/MD, old records Exam Limitations: no limitations Date Seen 10/07/19 Time Seen by a Provider: 17:40 Attending Physician Qian Gonsalves Julie A MD Referring Physician Date of Admission Oct 07, 2019 at 15:42 Home Medications & Allergies Home Medications Reviewed patient Home Medication Reconciliation performed by pharmacy medication reconciliations area intelligence technician and/or nursing. Patients Allergies have been reviewed. 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) Smoking Status: Current Everyday Smoker Type Used: Cigarettes 2nd Hand Smoke Exposure: Yes Recent Foreign Travel: No Contact w/other who traveled: No Recent Hopitalizations: No Recent Infectious Disease Expo: No Immunizations Up To Date Tetanus Booster (TDap): Less than 5yrs Date of Influenza Vaccine: Jul 18, 2019 Seasonal Allergies Seasonal Allergies: Yes Past Medical History Surgeries: Section, Gallbladder Respiratory: Asthma, Chronic Bronchitis, COPD, Emphysema, Pneumonia Currently Using CPAP: No Currently Using BIPAP: No Cardiac: High Cholesterol, Hypertension Reproductive: No Sexually Transmitted Disease: No Menopausal Gastrointestinal: Hiatal Hernia, Gall Bladder Disease Musculoskeletal: Degenerate Disk Disease, Chronic Back Pain Endocrine: Diabetes, Non-Insulin dep Psychosocial: Anxiety, Depression History of Blood Disorders: No Review of Systems Constitutional: see HPI, malaise, weakness Respiratory: cough, dyspnea on exertion, short of breath, wheezing Physical Exam Physical Exam Vital Signs Vital Signs - First Documented 10/07/19 10/07/19 14:47 15:04 Temp 38.0 Pulse 151 Resp 29 B/P (MAP) 115/99 (104) Pulse Ox 90 O2 Delivery OxyMask O2 Flow Rate 10.00 FiO2 50 Capillary Refill : Less Than 3 Seconds Height, Weight, BMI Height: 5'4.00" Weight: 220lbs. oz. 99.537596up; 30.00 BMI Method:Stated General Appearance: WD/WN, Anxious, Chronically ill, Moderate Distress Eyes: Right Eye Normal Inspection, Right Eye PERRL HEENT: PERRL/EOMI, Normal ENT Inspection, Pharynx Normal, Moist Mucous Membranes Neck: Full Range of Motion, Normal Inspection, Non Tender Respiratory: Chest Non Tender, Accessory Muscle Use, Crackles, Decreased Breath Sounds, Wheezing, Other (on biPAP) Cardiovascular: Regular Rate, Rhythm, No Edema, No Gallop, No JVD, No Murmur, Normal Peripheral Pulses Gastrointestinal: Normal Bowel Sounds, No Organomegaly, No Pulsatile Mass, Non Tender, Soft Back: Normal Inspection, No CVA Tenderness, No Vertebral Tenderness Extremity: Normal Capillary Refill, Normal Inspection, Normal Range of Motion, Non Tender, No Calf Tenderness, No Pedal Edema Neurologic/Psychiatric: Alert, Oriented x3, No Motor/Sensory Deficits, Normal Mood/Affect, trade analyst II-XII Norm as Tested Skin: Normal Color, Warm/Dry Lymphatic: No Adenopathy Results Results/Procedures Labs Laboratory Tests 10/07/19 15:00 Patient resulted labs reviewed. Assessment/Plan Admission Diagnosis Assessment: Respiratory insufficiency requiring biPAP Sepsis PNA AECOPD Hypoxia Smoker Leukocytosis profound Tachycardia Hypokalemia DM Chronic back pain Plan: IV abx O2 Nebs biPAP Admission Status: Inpatient Order (span 2 midnights) Reason for Inpatient Admission: Resp failure Diagnosis/Problems Diagnosis/Problems (1) Sepsis (2) Pneumonia (3) Smoker (4) Leukocytosis (5) Tachycardia (6) Respiratory failure Status: Acute Qualifiers: Chronicity: acute Respiratory failure complication: hypoxia and hypercapnia Qualified Codes: J96.01 - Acute respiratory failure with hypoxia; J96.02 - Acute respiratory failure with hypercapnia (7) COPD with exacerbation Status: Acute (8) Hypokalemia (9) Diabetes mellitus Clinical Quality Measures DVT/VTE Risk/Contraindication: Risk Factor Score Per Nursin RFS Level Per Nursing on Admit: 2=Moderate QIAN GONSALVES DO Oct 07, 2019 17:31
[2019-10-07] MEDS ORDERED: inSUlin ASPART (NovoLOG) 1 UNIT/0.01 ML (CHARGE PER UNIT) ONE (18:21)
[2019-10-07] MEDS: POTASSIUM CL 10 MEQ/50 ML IVPB (PRE-MIX) IV SCH ×4 (18:26→21:26)
[2019-10-07] MEDS: ENOXAPARIN 40 MG/0.4 ML (LOVENOX) SYR SC SCH (18:26)
[2019-10-07] MEDS: inSUlin ASPART (NovoLOG) 1 UNIT/0.01 ML (CHARGE PER UNIT) SC PRN (18:27)
[2019-10-07] MEDS: RT-ALBUTEROL/IPRATROPIUM 3 ML (DUONEB) VIAL INH SCH ×2 (19:07→21:39)
[2019-10-07] MEDS: ALPRAZolam 0.25 MG (XANAX) TAB PO PRN (20:08)
[2019-10-07 20:45] LABS: CLARITY,URINE CLEAR; COLOR,URINE AMBER; GLUCOSE, URINE (UA) TRACE (NEGATIVE); KETONES,URINE NEGATIVE (NEGATIVE); LEUKOCYTE ESTERASE ,URINE NEGATIVE (NEGATIVE); NITRITE,URINE POSITIVE (NEGATIVE); PROTEIN,URINE 2+ (NEGATIVE)
[2019-10-07 20:54] LABS: BILIRUBIN,URINE 2+ (NEGATIVE)
[2019-10-07 20:55] LABS: AMORPHOUS SEDIMENT,UR FEW AMOR URATES /LPF; BACTERIA,URINE FEW /HPF
[2019-10-07] MEDS: SENNA W/DOCUSATE (SENOKOT S) TABLET PO SCH (21:26)
[2019-10-07] MEDS: PIPERACILLIN/TAZO 4.5 GM/NS 100 ML IV SCH ×2 (22:49)
[2019-10-07] MEDS: methylPREDNISolone 125 MG (Solu-MEDROL) VIAL IV SCH (23:06)
[2019-10-08] VITALS (24 sets, daily range): BP systolic 89–141; BP diastolic 54–83
[2019-10-08] MEDS: inSUlin ASPART (NovoLOG) 1 UNIT/0.01 ML (CHARGE PER UNIT) SC PRN (00:37)
[2019-10-08 01:04] LABS: ABG BASE EXCESS 8.1 MMOL/L (-2.5-2.5); ABG OXYGEN SATURATION 95 % (94-100); ABG PCO2 50 MMHG (35-45); ABG PH 7.42 (7.37-7.43); ABG PO2 74 MMHG (79-93); ABG TCO2 34.5 MMOL/L (21.0-31.0); ALLENS TEST POSTIVE; INSPIRED O2 60% BIPAP; PATIENT TEMP 35.9; VENTILATOR NO
[2019-10-08] MEDS: LACTATED RINGERS 1,000 ML IV SCH ×2 (01:07→11:42)
[2019-10-08] MEDS: RT-ALBUTEROL/IPRATROPIUM 3 ML (DUONEB) VIAL INH SCH ×6 (02:24→23:09)
[2019-10-08 03:34] LABS: BASOPHILS # (AUTO) 0.2 10^3/uL (0.0-0.1); BASOPHILS % (AUTO) 1 % (0-10); EOSINOPHILS % (AUTO) 0 % (0-10); HEMATOCRIT 31 % (35-52); HEMOGLOBIN 10.3 G/DL (11.5-16.0); LYMPHOCYTES # (AUTO) 1.8 X 10^3 (1.0-4.0); LYMPHOCYTES % (AUTO) 5 % (12-44); MEAN CORPUSCULAR HEMOGLOBIN 30 PG (25-34); MEAN CORPUSCULAR HGB CONC 33 G/DL (32-36); MEAN CORPUSCULAR VOLUME 89 FL (80-99); MEAN PLATELET VOLUME 10.3 FL (7.4-10.4); MONOCYTES # (AUTO) 0.8 X 10^3 (0.0-1.0); MONOCYTES % (AUTO) 2 % (0-12); NEUTROPHILS # (AUTO) 32.5 X 10^3 (1.8-7.8); NEUTROPHILS % (AUTO) 92 % (42-75); PLATELET COUNT 271 10^3/uL (130-400); RED CELL DISTRIBUTION WIDTH 14.2 % (10.0-14.5)
[2019-10-08 03:35] LABS: WHITE BLOOD COUNT 35.4 10^3/uL (4.3-11.0)
[2019-10-08 03:52] LABS: ALANINE AMINOTRANSFERASE 48 U/L (0-55); ALBUMIN 2.5 GM/DL (3.2-4.5); ALKALINE PHOSPHATASE 159 U/L (40-136); BILIRUBIN,TOTAL 1.5 MG/DL (0.1-1.0); BUN/CREATININE RATIO 39; CALCIUM 8.7 MG/DL (8.5-10.1); CARBON DIOXIDE 24 MMOL/L (21-32); CHLORIDE 95 MMOL/L (98-107); CREATININE SERUM 0.61 MG/DL (0.60-1.30); GFR ESTIMATED > 60; GLUCOSE 239 MG/DL (70-105); MAGNESIUM 1.7 MG/DL (1.6-2.4); PHOSPHORUS 3.2 MG/DL (2.3-4.7); POTASSIUM 3.3 MMOL/L (3.6-5.0); SODIUM 135 MMOL/L (135-145); TOTAL PROTEIN 5.3 GM/DL (6.4-8.2)
--- NOTE | 2019-10-08 04:08 | Pulmonary Consultation ---
ALLEN LOUIE MED STUDENT 10/08/19 0408: History of Present Illness History of Present Illness Date Seen by Provider: Oct 08, 2019 Time Seen by Provider: 03:45 Date of Admission History of Present Illness The patient is a 69 year old female who presented to the ED with a chief complaint of shortness of breath. The patient answers all questions appropriately and fully cooperates with the physical exam. She reports that she has been having increasing shortness of breath over the last few days. The patient states that she has previously been diagnosed with COPD and is a current smoker. She has a 60 pk/yr history and is currently attempting to quit but is still smoking "a few" cigarettes per day. She has been experiencing a persistent cough that is productive of yellowish sputum. She denies fever, chills, or chest pain. This morning she states that she is feeling much better and that her shortness of breath is significantly improved. She states that she was prev iously on O2 at night but moved to [place] for 3 years and has not been able to get home oxygen restarted since moving back to the area. She has no other concerns at this time. Allergies and Home Medications Allergies Coded Allergies: NKANo Known Allergies (Verified Allergy, Unknown, 11/13/08) fentanyl (Unverified Allergy, Unknown, 01/25/13) Uncoded Allergies: phentanyl (Allergy, Unknown, 06/30/18) Home Medications Albuterol Sulfate 2.5 Mg/3 Ml Vial.neb, 2.5 MG IH Q4H PRN for WHEEZING Prescribed by: ZARA JIMENEZ on 06/30/18 1304 Albuterol Sulfate 2.5 Mg/3 Ml Vial.neb, 2.5 MG INH Q4H PRN for WHEEZING Prescribed by: ZARA JIMENEZ on 03/23/191927 Alprazolam 1 Mg Tablet, 1 MG PO TID PRN, (Reported) ANXIETY Azithromycin 250 Mg Tablet, 250 MG PO UD TAKE 2 TABLETS ON DAY ONE THEN TAKE 1 TABLET DAILY FOR FOUR MORE DAYS Prescribed by: ZARA JIMENEZ on 06/30/18 130 Cefuroxime Axetil 250 Mg Tablet, 250 MG PO BID Prescribed by: ZARA JIMENEZ on 03/23/191927 Hctz/Lisinopril 1 Tab Tablet, 1 TAB PO DAILY, (Reported) Hydrocodone Bit/Acetaminophen 1 Ea Tab, 1 TAB PO QID PRN, (Reported) MODERATE PAIN Ibuprofen 200 Mg Tablet, 400 MG PO Q4HR PRN, (Reported) MILD PAIN Omeprazole 20 Mg Capsule.dr, 20 MG PO DAILY, (Reported) Prednisone 20 Mg Tab, 40 MG PO DAILY Prescribed by: ZARA JIMENEZ on 06/30/18 1304 Prednisone 5 Mg Tablet, 40 MG PO DAILY Prescribed by: ZARA JIMENEZ on 03/23/19 1928 Prednisone 20 Mg Tab, 20 MG PO DAILY Take 3 tabs(60mg)daily, decrease by 1/2 tab(10mg)daily. 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) Smoking Status: Current Everyday Smoker Type Used: Cigarettes 2nd Hand Smoke Exposure: Yes Recent Foreign Travel: No Contact w/Someone Who Travel: No Recent Infectious Disease Expo: No Recent Hopitalizations: No Physical Abuse: No Sexual Abuse: No Immunizations Up To Date Tetanus Booster (TDap): Less than 5yrs Date of Influenza Vaccine: Jul 18, 2019 Seasonal Allergies Seasonal Allergies: Yes Past Medical History Surgeries: Yes (carpal tunnel; "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") Section, Gallbladder Respiratory: Yes Sleep Apnea Currently Using CPAP: No Currently Using BIPAP: No Cardiac: Yes High Cholesterol, Hypertension Neurological: Yes (chronic back) Reproductive Disorders: No 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 oz. 99.102482su; 30.00 BMI Method:Stated Exam Exam Vital Signs Date Time Temp Pulse Resp B/P (MAP) Pulse Ox O2 Delivery O2 Flow Rate FiO2 10/08/19 03:00 107 16 93/55 (68) 93 NIV Bilevel 60.00 10/08/19 02:24 110 13 90 50.00 10/08/19 02:00 66 13 111/65 (80) 94 NIV Bilevel 60.00 10/08/19 01:10 High Flow N/C 6.00 10/08/19 01:00 69 10/08/19 01:00 71 19 110/65 (80) 91 NIV Bilevel 60.00 10/08/19 00:27 35.9 10/08/19 00:00 68 18 89/66 (74) 91 NIV Bilevel 60.00 10/08/19 00:00 NIV Bilevel 60 10/07/19 23:00 65 14 91/69 (76) 92 NIV Bilevel 60.00 10/07/19 22:30 NIV Bilevel 55.00 10/07/19 22:00 71 17 91/60 (70) 91 NIV Bilevel 50.00 10/07/19 21:39 110 13 90 50.00 10/07/19 21:00 86 16 104/66 (79) 94 NIV Bilevel 50.00 10/07/19 20:00 79 12 105/58 (74) 94 NIV Bilevel 50.00 10/07/19 20:00 NIV Bilevel 50 10/07/19 20:00 35.3 10/07/19 19:07 112 24 90 50.00 10/07/19 19:00 116 16 118/75 (89) 92 NIV Bilevel 50.00 10/07/19 19:00 118 10/07/19 18:00 117 20 96/66 (76) 89 NIV Bilevel 50.00 10/07/19 17:00 140 15 104/66 (79) 91 NIV Bilevel 50.00 10/07/19 16:59 92 92 50 10/07/19 16:54 91 NIV Bilevel 50 10/07/19 16:49 106 10/07/19 16:48 36.0 92 19 98/78 (85) 92 NIV Bilevel 50.00 10/07/19 16:35 38.0 97 20 104/69 (104) 92 NIV Bilevel 10/07/19 15:07 121 29 90 50.00 10/07/19 15:04 90 NIV Bilevel 50 10/07/19 14:47 38.0 151 29 115/99 (104) 90 OxyMask 10.00 I & O 10/08/19 07:00 Intake Total 1350 ml Output Total 275 ml Balance 1075 ml Height & Weight Height: 5'4.00" Weight: 220lbs. oz. 99.774372yb; 30.00 BMI Method:Stated General Appearance: WD/WN, Anxious, Chronically ill HEENT: PERRL/EOMI, Normal ENT Inspection, Pharynx Normal, Moist Mucous Membranes Neck: Full Range of Motion, Normal Inspection, Non Tender Respiratory: Chest Non Tender, Accessory Muscle Use, Crackles, Decreased Breath Sounds, Wheezing Cardiovascular: Regular Rate, Rhythm, No Edema, No Gallop, No JVD, No Murmur, Normal Peripheral Pulses Capillary Refill: Less Than 3 Seconds Gastrointestinal: normal bowel sounds, non tender, soft Extremity: No Pedal Edema Neurologic/Psychiatric: Alert, Oriented x3, No Motor/Sensory Deficits, Normal Mood/Affect Skin: Normal Color, Warm/Dry Results Lab Laboratory Tests 10/07/19 15:00 10/08/19 03:26 Assessment/Plan Assessment/Plan Acute Respiratory Failure -BiPAP as needed -NC: O2 at 6L Pneumonia -Zosyn started 10/07 AECOPD -Duonebs Q4h -Solumedrol 125 Q8H Sepsis - lactic acid: 2.34; WBC: 46.4 on admission -IV fluids -empiric abx -blood cultures Tobacco use -cessation education Hypokalemia - 2.9 in ER -IV replacement - 4-50ml bags - finished -monitor - await morning labs -40mEq PO daily DM type II -sliding scale protocol Leukocytosis -secondary to infection -monitor CASTILLO MURRELL DO 10/08/19 0643: History of Present Illness History of Present Illness Time Seen by Provider: 07:06 History of Present Illness The patient is a 69 year old female who presented to the ED with a chief complaint of shortness of breath. The patient answers all questions appropriate ly and fully cooperates with the physical exam. She reports that she has been having increasing shortness of breath over the last few days. The patient states that she has previously been diagnosed with COPD and is a current smoker. She has a 60 pk/yr history and is currently attempting to quit but is still smoking "a few" cigarettes per day. She has been experiencing a persistent cough that is productive of yellowish sputum. She denies fever, chills, or chest pain. This morning she states that she is feeling much better and that her shortness of breath is significantly improved. She states that she was previously on O2 at night but moved to [place] for 3 years and has not been able to get home oxygen restarted since moving back to the area. She has no other concerns at this time. Allergies and Home Medications Allergies Coded Allergies: NKANo Known Allergies (Verified Allergy, Unknown, 11/13/08) fentanyl (Unverified Allergy, Unknown, 01/25/13) Uncoded Allergies: phentanyl (Allergy, Unknown, 06/30/18) Home Medications Albuterol Sulfate 2.5 Mg/3 Ml Vial.neb, 2.5 MG IH Q4H PRN for WHEEZING Prescribed by: ZARA JIMENEZ on 06/30/18 130 Albuterol Sulfate 2.5 Mg/3 Ml Vial.neb, 2.5 MG INH Q4H PRN for WHEEZING Prescribed by: ZARA JIMENEZ on 03/23/191927 Alprazolam 1 Mg Tablet, 1 MG PO TID PRN, (Reported) ANXIETY Azithromycin 250 Mg Tablet, 250 MG PO UD TAKE 2 TABLETS ON DAY ONE THEN TAKE 1 TABLET DAILY FOR FOUR MORE DAYS Prescribed by: ZARA JIMENEZ on 06/30/181303 Cefuroxime Axetil 250 Mg Tablet, 250 MG PO BID Prescribed by: ZARA JIMENEZ on 03/23/191927 Hctz/Lisinopril 1 Tab Tablet, 1 TAB PO DAILY, (Reported) Hydrocodone Bit/Acetaminophen 1 Ea Tab, 1 TAB PO QID PRN, (Reported) MODERATE PAIN Ibuprofen 200 Mg Tablet, 400 MG PO Q4HR PRN, (Reported) MILD PAIN Omeprazole 20 Mg Capsule.dr, 20 MG PO DAILY, (Reported) Prednisone 20 Mg Tab, 40 MG PO DAILY Prescribed by: ZARA JIMENEZ on 06/30/181303 Prednisone 5 Mg Tablet, 40 MG PO DAILY Prescribed by: ZARA JIMENEZ on 03/23/191927 Prednisone 20 Mg Tab, 20 MG PO DAILY Take 3 tabs(60mg)daily, decrease by 1/2 tab(10mg)daily. Prescribed by: LEWIS AGUILAR on 07/24/19957 Simvastatin 20 Mg Tablet, 20 MG PO HS, (Reported) Review of Systems Time Seen by Provider: 07:10 Exam Exam General Appearance: Anxious, Chronically ill, Mild Distress HEENT: PERRL/EOMI, Normal ENT Inspection, Pharynx Normal, Moist Mucous Membranes Neck: Full Range of Motion, Normal Inspection, Non Tender Respiratory: Chest Non Tender, Accessory Muscle Use, Crackles, Decreased Breath Sounds Cardiovascular: Regular Rate, Rhythm, No Edema, No Gallop, No JVD, No Murmur, Normal Peripheral Pulses Gastrointestinal: normal bowel sounds, non tender, soft Extremity: No Pedal Edema Neurologic/Psychiatric: Alert, Oriented x3, No Motor/Sensory Deficits, Normal Mood/Affect Skin: Normal Color, Warm/Dry Assessment/Plan Assessment/Plan Acute on chronic Respiratory Failure -BiPAP as needed -NC: O2 at 6L -Low threshold for intubation - If pt gets any worse Pneumonia RUL -- Probable aspiration r/o MASS -Check CT of chest -Will need to follow imaging to complete resolution to r/o mass. -Zosyn started 10/07, Add vanco 10/08 -[place] cultures AECOPD -Duonebs Q4h -D/C solumedrol for now. Continue SVNS Sepsis - lactic acid: 2.34; WBC: 46.4 on admission -IV fluids -empiric abx -blood cultures UDS -- Positive for methamphetamine -Education Tobacco use -cessation education Hypokalemia - -Replace DM type II -sliding scale protocol r Supervisory-Addendum Brief Verification & Attestation Participated in pt care: history Personally performed: exam, history Care discussed with: Medical Student Procedures: n/a Verification and Attestation of Medical Student E/M Service A medical student performed and documented this service in my presence. I reviewed and verified all information documented by the medical student and made modifications to such information, when appropriate. I personally performed the physical exam and medical decision making. Castillo Murrell, Oct 08, 2019,07:10 ALLEN LOUIE MED STUDENT Oct 08, 2019 04:08 CASTILLO MURRELL DO Oct 08, 2019 06:43
[2019-10-08] MEDS ORDERED: inSUlin ASPART (NovoLOG) 1 UNIT/0.01 ML (CHARGE PER UNIT) SC SCH (06:00)
[2019-10-08] MEDS: MAGNESIUM 1 GM/100 ML IVPB 100 ML IV SCH ×3 (06:00→07:07)
[2019-10-08] MEDS: POTASSIUM CL 10MEQ/50ML IVPB 50 ML IV SCH ×5 (06:00→08:41)
[2019-10-08] MEDS: methylPREDNISolone 125 MG (Solu-MEDROL) VIAL IV SCH (06:01)
[2019-10-08] MEDS: PIPERACILLIN/TAZO 4.5 GM/NS 100 ML IV SCH ×6 (06:12→22:24)
[2019-10-08] MEDS ORDERED: PHARMACY TO DOSE IV SCH (06:45)
--- NOTE | 2019-10-08 06:46 | Diagnostic Imaging Report ---
EXAMINATION: Portable erect AP chest at 3:32 AM INDICATION: Pneumonia The cardiomegaly and the dense area of consolidation involving the right upper lobe seen on the prior exam of 10/07/2019 are again evident and no different. The atelectasis/infiltrate and fluid in the right lung base is also stable in appearance. The left lung remains clear. The mediastinum is prominent but unchanged when compared to the prior exam. The osseous structures are intact. IMPRESSION: 1. Stable chest. There has been no adverse change since the prior exam. 2. If further imaging is desired, then CT chest would be recommended. Dictated by: Dictated on workstation # [id number]
[2019-10-08 07:04] LABS: AMPHETAMINE SCREEN, URINE NEGATIVE (NEGATIVE); BARBITURATE SCREEN URINE NEGATIVE (NEGATIVE); BENZODIAZEPINES SCREEN URINE POSITIVE (NEGATIVE); CANNABINOID SCREEN, URINE NEGATIVE (NEGATIVE); COCAINE SCREEN URINE NEGATIVE (NEGATIVE); METHADONE STAT NEGATIVE (NEGATIVE); METHAMPHETAMINE SCREEN URINE S POSITIVE (NEGATIVE); OPIATE SCREEN URINE NEGATIVE (NEGATIVE); OXYCODONE STAT NEGATIVE (NEGATIVE); PROPOXYPHENE STAT NEGATIVE (NEGATIVE); TRICYCLIC ANTIDEPRESSANTS SCRE NEGATIVE (NEGATIVE)
[2019-10-08] MEDS: KCL 20 MEQ TAB (K-DUR) PO SCH (07:07)
[2019-10-08] MEDS ORDERED: VANCOMYCIN 1500 MG/NS 500 ML IVPB IV ONE ×2 (07:15)
[2019-10-08] MEDS ORDERED: VANCOMYCIN 2000 MG/NS 500 ML IVPB IV NR ×2 (07:32)
--- NOTE | 2019-10-08 07:43 | NUR ---
VANCOMYCIN DOSING SCR 0.61 (USED 1.0); CRCL ~ 60; BOLUS VANC 20 MG/KG X 95 KG ~ 2 GM THEN VANC 15 MG/KG ~ 1500 MG Q12H CHECK TROUGH AFTER 3RD DOSE 10/09 1900 HOLD DOSE AND CONTACT PHARMACY IF LEVEL IS GREATER THAN 20
[2019-10-08] MEDS: ACETAMINOPHEN 500 MG TAB (TYLENOL) PO PRN (08:40)
[2019-10-08] MEDS: SENNA W/DOCUSATE (SENOKOT S) TABLET PO SCH ×2 (08:40→19:51)
[2019-10-08] MEDS ORDERED: NS 100 ML (IVPB) BAG IV ONE (09:00)
[2019-10-08] MEDS ORDERED: CATHETER FLUSH 10 ML SYR IV PRN (09:00)
[2019-10-08] MEDS ORDERED: HOLD METFORMIN - RECEIVED CONTRAST 20 ML VIAL IV SCH (09:00)
[2019-10-08] MEDS ORDERED: IOHEXOL 350 MG/ML 100 ML (OMNIPAQUE 350) VIAL IV ONE (09:00)
--- NOTE | 2019-10-08 10:45 | NUR ---
Verbal order received from to order Baclofen 5mg Q8H PRN for back pain and to order a Kpad.
--- NOTE | 2019-10-08 11:11 | Consultation-Cardiology ---
HPI-Cardiology Cardiology Consultation: Date of Consultation 10/08/19 Date of Admission Attending Physician Qian Gonsalves DO Admitting Physician Edith Calderon MD Consulting Physician Alana HAM MD HPI: Time Seen by a Provider: 10:15 Chief Complaint: Shortness of breath, tachycardia This is a 69-year-old lady with history of COPD. No significant cardiac history. She presents with worsening shortness of breath. She denies any chest pain, syncope, near-syncope, palpitations. To ER with shortness of breath for the past several days. States she has COPD. She was here about 2 weeks ago for the same.States she is supposed to wear oxygen at home but does not, hasn't been taking any of her medications either because she feels like they were making her sick. She follows with Edith Calderon from [facility]. She has no known history of atrial fibrillation. States she does want to be intubated if necessary. Review of Systems-Cardiology Review of Systems Constitutional: As described under HPI; No As described under HPI, No no symptoms reported, No chills, No fever, No lightheadedness Eyes: No As described under HPI, No no symptoms reported, No blindness, No blurred vision, No contact lenses, No drainage, No decreased acuity, No foreign body sensation, No pain, No vision change Ears/Nose/Throat: No As described under HPI, No no symptoms reported, No chronic hearing loss, No ear discharge, No ear pain, No nasal drainage, No ulcerations Respiratory: No no symptoms reported; As described under HPI; No As described under HPI, No cough; orthopnea; No shortness of breath, No SOB with excertion Cardiovascular: No no symptoms reported; As described under HPI; No As described under HPI, No chest pain, No edema, No irregular heart rate, No lightheadedness, No palpitations Gastrointestinal: No no symptoms reported, No As described under HPI, No abdomen distended, No abdominal pain, No blood streaked bowels, No constipation, No diarrhea, No nausea, No vomiting, No stool coloration changes Genitourinary: No As described under HPI, No burning, No dysuria, No discharge, No frequency, No flank pain, No hematuria, No urgency : Yes : No Skin: No rash, No skin related problems, No ulcerations Psychiatric/Neurological: No anxiety, No depression, No seizure, No focal weakness, No syncope Hematologic: No bleeding abnormalities FYB-[id number]-Ucbnnb Hx Patient Social History Marrital Status: single Employed/Student: retired Alcohol Use: Denies Use 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 Allergies and Home Medications Allergies Coded Allergies: fentanyl (Unverified Allergy, Unknown, 01/25/13) Uncoded Allergies: phentanyl (Allergy, Unknown, 06/30/18) Home Medications Albuterol Sulfate 2.5 Mg/3 Ml Vial.neb, 2.5 MG IH Q4H PRN for WHEEZING Prescribed by: ZARA JIMENEZ on 06/30/18 1304 Buprenorphine HCl/Naloxone HCl 1 Each Film, 1 EACH SL BID, (Reported) Chlorzoxazone 500 Mg Tablet, 500 MG PO TID, (Reported) Fluoxetine HCl 20 Mg Capsule, 20 MG PO HS, (Reported) Guaifenesin 400 Mg Tablet, 400 MG PO BID, (Reported) Levalbuterol HCl 1.25 Mg/3 Ml Vial.neb, 1.25 MG IH Q8H PRN for WHEEZING, (Reported) Lisinopril/Hydrochlorothiazide 1 Each Tablet, 1 EACH PO HS, (Reported) Metformin HCl 500 Mg Tab.er.24h, 1,000 MG PO DAILY, (Reported) Quetiapine Fumarate 100 Mg Tablet, 100 MG PO HS, (Reported) Quetiapine Fumarate 100 Mg Tablet, 100 MG PO HS PRN for INSOMNIA, (Reported) TAKES A FEW HOURS AFTER INITAL DOSE IF SLEEP IS NOT ACHIEVED Simvastatin 20 Mg Tablet, 20 MG PO HS, (Reported) Patient Home Medication List Home Medication List Reviewed: Yes Physical Exam-Cardiology Physical Exam Vital Signs/I&O 10/10/19 10/10/19 10/10/19 10/10/19 04:30 06:53 08:00 09:53 Temp 36.4 36.2 Pulse 67 66 Resp 18 18 B/P (MAP) 149/82 (104) 156/82 (106) Pulse Ox 93 98 95 O2 Delivery Nasal Cannula Nasal Cannula Nasal Cannula Nasal Cannula O2 Flow Rate 4.00 4.00 4.00 4.00 10/10/19 10/10/19 10/10/19 10:08 10:58 12:00 Temp 36.2 36.5 Pulse 69 75 Resp 18 B/P (MAP) 141/82 (101) Pulse Ox 95 93 95 O2 Delivery Nasal Cannula Nasal Cannula O2 Flow Rate 4.00 4.00 FiO2 36 10/10/19 00:00 Intake Total 580 ml Output Total 600 ml Balance -20 ml Capillary Refill : Less Than 3 Seconds Constitutional: appears stated age, AAO x 3, apparent distress, well-developed, well-nourished HEENT: PERRL; No discharge; hearing is well preserved, oral hygience is good; No ulceration, No xanthelasmas are seen Neck: No carotid bruit; carotid pulses are 2 + bilaterally Respiratory: chest is bilaterally symmetric, other (decreased air entry bilaterally.) Cardiovascular: regular rate-rhythm, tachycardia, S1 and S2 Gastrointestinal: soft, audible bowel sounds; No spleenomegaly Rectal: deferred Extremities: normal range of motion, non-tender, normal inspection; No clubbing, No cyanosis; no lower extremity edema bilateral; No significant edema Neurologic/Psychiatric: alert, oriented x 3, power is 5/5 both on sides Skin: No rash, No ulcerations Data Review Labs Laboratory Tests 10/09/19 15:35: Glucometer 188H 10/09/19 18:45: Vancomycin Level Trough 21.6H 10/09/19 20:50: Glucometer 197H 10/10/19 05:45: White Blood Count 18.4H, Red Blood Count 3.54L, Hemoglobin 10.3L, Hematocrit 31L , Mean Corpuscular Volume 88, Mean Corpuscular Hemoglobin 29, Mean Corpuscular Hemoglobin Concent 33, Red Cell Distribution Width 14.5, Platelet Count 504H, Mean Platelet Volume 8.9, Sodium Level 142, Potassium Level 3.8, Chloride Level 100, Carbon Dioxide Level 32, Anion Gap 10, Blood Urea Nitrogen 31H, Creatinine 0.66, Estimat Glomerular Filtration Rate > 60, BUN/Creatinine Ratio 47, Glucose Level 108H, Calcium Level 8.7, Corrected Calcium 9.9, Total Bilirubin 0.6, Aspartate Amino Transf (AST/SGOT) 70H, Alanine Aminotransferase (ALT/SGPT) 73H, Alkaline Phosphatase 193H, Total Protein 5.3L, Albumin 2.5L Microbiology 10/07/19 Urine Culture - Final, Complete NO GROWTH 10/07/19 MRSA Screen - Final, Complete MRSA not isolated 10/07/19 Blood Culture - Preliminary, Resulted No growth A/P-Cardiology Assessment/Admission Diagnosis Acute respiratory failure, COPD, Pneumonia, Tachycardia, Elevated LFTs Plan Acute respiratory failure, COPD, pneumonia as the most contributing factors. Severe sepsis, significant leukocytosis and lactic acidosis. Broad-spectrum IV antibiotics. COPD, as above. Pneumonia, Tachycardia, sinus tachycardia, due to systemic illness. No evidence of significant diastolic congestive heart failure with normal BNP. Echocardiogram did show evidence of diastolic dysfunction though. Elevated LFTs, abdominal ultrasound. Thank you for your consultation. Please call me if you have any questions. Kin Ham MD, FACP, FACC, FSCAI, FHRS, CCDS Interventional Cardiology Cardiac Electrophysiology Vascular Medicine and Endovascular Interventions Clinical Quality Measures DVT/VTE Risk/Contraindication: Risk Factor Score Per Nursin RFS Level Per Nursing on Admit: 2=Moderate Alana HAM MD Oct 08, 2019 11:11
[2019-10-08] MEDS ORDERED: BACLOFEN 10 MG (LIORESAL) TAB PO PRN (11:30)
[2019-10-08] MEDS: inSUlin ASPART (NovoLOG) 1 UNIT/0.01 ML (CHARGE PER UNIT) SC SCH ×3 (11:43→22:24)
--- NOTE | 2019-10-08 12:05 | Diagnostic Imaging Report ---
PROCEDURE: CT chest with contrast only. TECHNIQUE: Multiple contiguous axial images were obtained through the chest after administration of intravenous contrast. Auto Exposure Controls were utilized during the CT exam to meet ALARA standards for radiation dose reduction. INDICATION: Shortness of breath. Pneumonia. COMPARISON: Chest radiograph performed earlier the same date. CTA chest on 06/30/2018. FINDINGS: The heart size is within normal limits. No pericardial effusion is present. Enlarged mediastinal lymph nodes are present, with a marker nodule in the right paratracheal station measuring 1.2 cm in short axis. Consolidative opacities are seen involving the right upper and lower lobes. There is relative sparing of the inferior right upper lobe and superior right lower lobe. The left lung is clear. No central endobronchial obstructing lesions are identified. There is no pleural effusion or pneumothorax. The osseous structures demonstrate no acute abnormalities. Limited views of the upper abdominal structures demonstrate pneumobilia in the left hepatic lobe. This may relate to incompetent sphincter of Jose. The gallbladder is surgically absent. Hepatic steatosis is noted. IMPRESSION: 1. Consolidative opacities in the right upper and lower lobes, representing pneumonia. Reactive mediastinal lymph nodes are seen. No pleural effusion. 2. Pneumobilia in the left hepatic lobe. This may represent incompetent sphincter of Jose. Dictated by: Dictated on workstation # [id number]
--- NOTE | 2019-10-08 12:13 | Progress Note - Hospitalist ---
Subjective HPI/CC On Admission Date Seen by Provider: Oct 08, 2019 Time Seen by Provider: 11:00 CC: Pneumonia with sepsis and respiratory insufficiency HPI: This is a 69yoWF clinic patient of [facility] who was in the ER recently treated for AECOPD who continues to smoke who presented today to the ER in respiratory distress with O2 saturation of 64% upon arrival. Patient was found to have sepsis and PNA and AECOPD. Patient was placed on Zosyn and IV steroids and Nebs and O2 and biPAP is required. Patient is receiving IVF per protocol. Dr Murrell and DR Ham are consulted for hypoxia and tachycardia respectively. Unable to obtain any details due to biPAP required. Subjective/Events-last exam Off BiPAP this morning White count down to 35,000 Chronic back pain continues so will initiate Voltaren gel and K pad since she had been on Percocet for 17 years and do not want a really start the addiction potential again Overall appears much improved Maintained on oxygen CT lungs ordered by Dr. Murrell Review of Systems Pulmonary: Dyspnea, Cough Musculoskeletal: back pain Focused Exam Lactate Level 10/07/19 15:00: Lactic Acid Level 2.34*H 10/07/19 17:20: Lactic Acid Level 1.94 Objective Exam Vital Signs Vital Signs Date Time Temp Pulse Resp B/P (MAP) Pulse Ox O2 Delivery O2 Flow Rate FiO2 10/08/19 17:00 64 14 113/67 (82) 90 Nasal Cannula 5.00 10/08/19 15:24 35.8 10/08/19 04:00 60 Capillary Refill : Less Than 3 Seconds General Appearance: No Apparent Distress, WD/WN, Chronically ill Respiratory: No Accessory Muscle Use, No Respiratory Distress, Crackles, Decreased Breath Sounds, Wheezing Cardiovascular: Regular Rate, Rhythm Neurologic/Psychiatric: Alert, Oriented x3, No Motor/Sensory Deficits, Normal Mood/Affect Results/Procedures Lab Laboratory Tests 10/08/19 03:26 Patient resulted labs reviewed. Assessment/Plan Assessment and Plan Assess & Plan/Chief Complaint Assessment: Respiratory insufficiency requiring biPAP Sepsis PNA AECOPD Hypoxia Smoker Leukocytosis profound Tachycardia Hypokalemia DM Chronic back pain Plan: IV abx O2 Nebs biPAP prn Diagnosis/Problems Diagnosis/Problems (1) Sepsis (2) Pneumonia (3) Smoker (4) Leukocytosis (5) Tachycardia (6) Respiratory failure Status: Acute Qualifiers: Chronicity: acute Respiratory failure complication: hypoxia and hypercapnia Qualified Codes: J96.01 - Acute respiratory failure with hypoxia; J96.02 - Acute respiratory failure with hypercapnia (7) COPD with exacerbation Status: Acute (8) Hypokalemia (9) Diabetes mellitus Clinical Quality Measures DVT/VTE Risk/Contraindication: Risk Factor Score Per Nursin RFS Level Per Nursing on Admit: 2=Moderate RENATA TRIMBLE DO Oct 08, 2019 12:13
[2019-10-08] MEDS: ENOXAPARIN 40 MG/0.4 ML (LOVENOX) SYR SC SCH (17:12)
[2019-10-08] MEDS: HYDROcodone/APAP 5 MG/325 MG (LORTAB) TAB PO PRN (19:51)
[2019-10-08] MEDS: ALPRAZolam 0.25 MG (XANAX) TAB PO PRN (19:51)
[2019-10-08] MEDS: VANCOMYCIN 1500 MG/NS 500 ML IVPB IV SCH ×2 (19:55)
--- NOTE | 2019-10-08 23:13 | NUR ---
found pt off bipap Addendum: 10/08/19 at 2313 by DEBBY MOORE RT Amended: Links added.
[2019-10-09] VITALS (13 sets, daily range): BP systolic 112–189; BP diastolic 73–95
[2019-10-09] MEDS: RT-ALBUTEROL/IPRATROPIUM 3 ML (DUONEB) VIAL INH SCH ×6 (02:47→21:20)
[2019-10-09 03:50] LABS: BASOPHILS # (AUTO) 0.1 10^3/uL (0.0-0.1); BASOPHILS % (AUTO) 0 % (0-10); EOSINOPHILS % (AUTO) 0 % (0-10); HEMATOCRIT 32 % (35-52); HEMOGLOBIN 10.1 G/DL (11.5-16.0); LYMPHOCYTES # (AUTO) 1.6 X 10^3 (1.0-4.0); LYMPHOCYTES % (AUTO) 4 % (12-44); MEAN CORPUSCULAR HEMOGLOBIN 28 PG (25-34); MEAN CORPUSCULAR HGB CONC 32 G/DL (32-36); MEAN CORPUSCULAR VOLUME 88 FL (80-99); MEAN PLATELET VOLUME 9.2 FL (7.4-10.4); MONOCYTES # (AUTO) 1.1 X 10^3 (0.0-1.0); MONOCYTES % (AUTO) 3 % (0-12); NEUTROPHILS # (AUTO) 35.4 X 10^3 (1.8-7.8); NEUTROPHILS % (AUTO) 93 % (42-75); PLATELET COUNT 485 10^3/uL (130-400); RED CELL DISTRIBUTION WIDTH 14.5 % (10.0-14.5)
[2019-10-09 03:56] LABS: WHITE BLOOD COUNT 38.2 10^3/uL (4.3-11.0)
[2019-10-09 04:15] LABS: BUN/CREATININE RATIO 39; CARBON DIOXIDE 27 MMOL/L (21-32); CHLORIDE 96 MMOL/L (98-107); CREATININE SERUM 0.74 MG/DL (0.60-1.30); GFR ESTIMATED > 60; GLUCOSE 182 MG/DL (70-105); MAGNESIUM 2.1 MG/DL (1.6-2.4); PHOSPHORUS 3.5 MG/DL (2.3-4.7); POTASSIUM 3.6 MMOL/L (3.6-5.0); SODIUM 137 MMOL/L (135-145)
--- NOTE | 2019-10-09 04:35 | Pulmonary Progress Note ---
ALLEN LOUIE MED STUDENT 10/09/19 0435: Subjective Date Seen by a Provider: Oct 09, 2019 Time Seen by a Provider: 04:15 Subjective/Events-last exam The patient is awake/alert and answering all questions appropriately. She fully participates in the physical exam. She is complaining of back pain this morning. She reports that her shortness of breath is unchanged but her cough is mildly improved. She denies chest pain, fever, or chills. She is asking for pain medicine but has no other concerns at this time. Sepsis Event Evaluation Height, Weight, BMI Height: 5'4.00" Weight: 220lbs. oz. 99.575556em; 30.00 BMI Method:Stated Focused Exam Lactate Level 10/07/19 15:00: Lactic Acid Level 2.34*H 10/07/19 17:20: Lactic Acid Level 1.94 Exam Exam Vital Signs Date Time Temp Pulse Resp B/P (MAP) Pulse Ox O2 Delivery O2 Flow Rate FiO2 10/09/19 04:00 61 16 153/91 (111) 93 NIV Bilevel 50.00 10/09/19 03:00 60 15 138/86 (103) 95 NIV Bilevel 50.00 10/09/19 02:48 95 Vapotherm 50 10/09/19 02:00 58 15 133/78 (96) 95 NIV Bilevel 50.00 10/09/19 01:04 NIV Bilevel 50.00 10/09/19 01:00 63 10/09/19 01:00 64 14 138/80 (99) 91 High Flow N/C 6.00 10/09/19 00:00 61 15 128/73 (91) 93 High Flow N/C 6.00 10/08/19 23:04 96 High Flow N/C 5.00 10/08/19 23:00 64 12 128/72 (90) 93 High Flow N/C 6.00 10/08/19 22:25 36.1 10/08/19 22:00 66 12 141/75 (97) 93 High Flow N/C 6.00 10/08/19 21:00 68 15 138/76 (96) 93 High Flow N/C 6.00 10/08/19 20:00 68 18 132/71 (91) 92 High Flow N/C 6.00 10/08/19 19:28 35.4 10/08/19 19:24 64 14 96 60.00 10/08/19 19:00 65 15 119/69 (86) 92 High Flow N/C 6.00 10/08/19 19:00 65 10/08/19 18:00 69 13 124/68 (86) 90 Nasal Cannula 5.00 10/08/19 17:00 64 14 113/67 (82) 90 Nasal Cannula 5.00 10/08/19 16:00 65 14 90 Nasal Cannula 5.00 10/08/19 16:00 Nasal Cannula 6.00 10/08/19 15:50 Nasal Cannula 5.00 10/08/19 15:36 93 High Flow N/C 6.00 10/08/19 15:24 35.8 10/08/19 15:00 66 17 94 Nasal Cannula 6.00 10/08/19 14:00 72 15 116/59 (78) 94 Nasal Cannula 6.00 10/08/19 13:00 80 10/08/19 13:00 73 25 116/76 (89) 93 Nasal Cannula 6.00 10/08/19 12:00 70 15 121/65 (83) 97 Nasal Cannula 6.00 10/08/19 12:00 Nasal Cannula 6.00 10/08/19 11:33 36.0 10/08/19 11:09 90 High Flow N/C 6.00 10/08/19 11:00 73 21 117/65 (82) 70 Nasal Cannula 6.00 10/08/19 10:00 66 12 107/69 (82) 94 Nasal Cannula 6.00 10/08/19 09:30 Nasal Cannula 6.00 10/08/19 09:00 73 51 130/83 (99) 97 NIV Bilevel 60.00 10/08/19 08:00 75 29 133/62 (85) 89 NIV Bilevel 60.00 10/08/19 08:00 Nasal Cannula 6.00 10/08/19 08:00 35.9 10/08/19 07:25 92 High Flow N/C 6.00 10/08/19 07:00 62 14 90/60 (70) 93 NIV Bilevel 60.00 10/08/19 07:00 64 10/08/19 06:00 68 16 101/54 (70) 93 NIV Bilevel 60.00 10/08/19 05:00 68 15 105/73 (84) 91 NIV Bilevel 60.00 I & O 10/09/19 07:00 Intake Total 2620 ml Output Total 675 ml Balance 1945 ml Height & Weight Height: 5'4.00" Weight: 220lbs. oz. 99.028561vo; 30.00 BMI Method:Stated General Appearance: No Apparent Distress, WD/WN, Chronically ill HEENT: PERRL/EOMI, Normal ENT Inspection, Pharynx Normal, Moist Mucous Membranes Neck: Full Range of Motion, Normal Inspection, Non Tender Respiratory: No Accessory Muscle Use, No Respiratory Distress, Crackles, Decreased Breath Sounds, Wheezing Cardiovascular: Regular Rate, Rhythm Capillary Refill: Less Than 3 Seconds Gastrointestinal: normal bowel sounds, non tender, soft Extremity: Pedal Edema Neurologic/Psychiatric: Alert, Oriented x3, No Motor/Sensory Deficits, Normal Mood/Affect Skin: Normal Color, Warm/Dry Results Lab Laboratory Tests 10/07/19 15:00 10/08/19 03:26 10/09/19 03:41 Assessment/Plan Assessment/Plan Acute on chronic Respiratory Failure -BiPAP as needed -NC: O2 at 5L -Low threshold for intubation - If pt gets any worse Pneumonia RUL -- Probable aspiration r/o MASS -Check CT of chest -Will need to follow imaging to complete resolution to r/o mass. -Zosyn started 10/07, Add vanco 10/08 -[place] cultures AECOPD -Duonebs Q4h -D/C solumedrol for now. Continue SVNS Sepsis - lactic acid: 2.34 on admission; WBC: 38.2 on 10/08 -IV fluids -empiric abx -blood cultures - preliminary: no growth on 10/08 UDS -- Positive for methamphetamine -Education Tobacco use -cessation education Hypokalemia - resolved: 3.6 on 10/08 -Replace as needed DM type II -sliding scale protocol JARED SUTTON DO 10/09/19 0624: Subjective Time Seen by a Provider: 06:18 Subjective/Events-last exam She is complaining of back pain this morning. Exam Exam General Appearance: No Apparent Distress, WD/WN, Chronically ill HEENT: PERRL/EOMI, Normal ENT Inspection, Pharynx Normal, Moist Mucous M embranes Respiratory: No Accessory Muscle Use, No Respiratory Distress, Crackles, Decreased Breath Sounds, Wheezing Cardiovascular: Regular Rate, Rhythm Gastrointestinal: normal bowel sounds, non tender, soft Neurologic/Psychiatric: Alert, Oriented x3, No Motor/Sensory Deficits, Normal Mood/Affect Skin: Normal Color, Warm/Dry Assessment/Plan Assessment/Plan Acute on chronic Respiratory Failure -BiPAP as needed -NC: O2 at 5L -Low threshold for intubation - If pt gets any worse Pneumonia RUL/RLL -- Probable aspiration -CT of chest - reviewed -Will need to follow imaging to complete resolution to r/o mass. -Zosyn started 10/07, Add vanco 10/08 -[place] cultures - pending Elevated LFTs -Check US of abd AECOPD -Duonebs Q4h -D/C solumedrol for now. Continue SVNS Sepsis - lactic acid: 2.34 on admission; WBC: 38.2 on 10/08 -IV fluids -empiric abx -blood cultures - preliminary: no growth on 10/08 UDS -- Positive for methamphetamine -Education Tobacco use -cessation education Hypokalemia - resolved: 3.6 on 10/08 -Replace as needed DM type II -sliding scale protocol ALLEN LOUIE MED STUDENT Oct 09, 2019 04:35 JARED SUTTON DO Oct 09, 2019 06:24
[2019-10-09] MEDS: MAGNESIUM 1 GM/100 ML IVPB 100 ML IV SCH (04:47)
[2019-10-09] MEDS: KCL 20 MEQ TAB (K-DUR) PO SCH (04:47)
[2019-10-09] MEDS: POTASSIUM CL 10MEQ/50ML IVPB 50 ML IV SCH ×3 (04:47→08:18)
[2019-10-09] MEDS: PIPERACILLIN/TAZO 4.5 GM/NS 100 ML IV SCH ×6 (06:02→23:07)
[2019-10-09] MEDS: LACTATED RINGERS 1,000 ML IV SCH (06:03)
[2019-10-09] MEDS: inSUlin ASPART (NovoLOG) 1 UNIT/0.01 ML (CHARGE PER UNIT) SC SCH ×2 (06:03→12:28)
[2019-10-09] MEDS: ALPRAZolam 0.25 MG (XANAX) TAB PO PRN (06:04)
[2019-10-09] MEDS: HYDROcodone/APAP 5 MG/325 MG (LORTAB) TAB PO PRN ×3 (06:04→22:17)
[2019-10-09 07:11] LABS: ALANINE AMINOTRANSFERASE 90 U/L (0-55); ALBUMIN 2.7 GM/DL (3.2-4.5); ALKALINE PHOSPHATASE 218 U/L (40-136); BILIRUBIN,TOTAL 0.9 MG/DL (0.1-1.0); BUN/CREATININE RATIO 39; CARBON DIOXIDE 26 MMOL/L (21-32); CHLORIDE 96 MMOL/L (98-107); CREATININE SERUM 0.74 MG/DL (0.60-1.30); GFR ESTIMATED > 60; GLUCOSE 182 MG/DL (70-105); POTASSIUM 3.7 MMOL/L (3.6-5.0); SODIUM 136 MMOL/L (135-145); TOTAL PROTEIN 5.9 GM/DL (6.4-8.2)
--- NOTE | 2019-10-09 08:05 | Diagnostic Imaging Report ---
HISTORY: Pneumonia. TECHNIQUE: Frontal view of the chest. COMPARISON: 10/08/2019 FINDINGS: Airspace opacities in the right lung appear mildly improved compared to the prior exam. The left lung is clear. The cardiac silhouette is mildly prominent but stable since the prior study. There is a minimal right pleural effusion. No pneumothorax is seen. IMPRESSION: 1. Dense airspace consolidation in the right lung is mildly improved compared to the prior exam. Minimal right pleural effusion. Dictated by: Dictated on workstation # [id number]
[2019-10-09] MEDS: SENNA W/DOCUSATE (SENOKOT S) TABLET PO SCH ×3 (08:18→23:11)
[2019-10-09] MEDS: VANCOMYCIN 1500 MG/NS 500 ML IVPB IV SCH ×2 (08:19)
--- NOTE | 2019-10-09 09:53 | Diagnostic Imaging Report ---
Clinical indication: Patient with elevated liver function tests. Patient has right upper quadrant and mid epigastric pain. Exam: Right upper quadrant ultrasound. Comparison: Complete abdominal ultrasound dated 06/11/2011. CT scan of the abdomen with contrast dated 06/17/2011. CT angiogram of the chest with contrast dated 06/30/2018. Findings: The liver is enlarged measuring 21.3 cm in craniocaudal dimension. There is a geographic appearing hypoechoic area involving the right lobe of the liver near the region of the kidney. This may represent geographic fatty sparing. This finding was not imaged on the prior CT angiogram of the chest or seen on the prior CT scan of the abdomen. Otherwise, the liver has normal echogenicity and echotexture. The liver surface is smooth. There is no intrahepatic ductal dilation. The gallbladder is surgically resected. The common bile duct is upper limits of normal for postcholecystectomy measuring 1.0 cm. The main portal vein demonstrates biphasic hepatopetal flow. Portion of the pancreatic tail is partially obscured by overlying bowel gas. Otherwise, the pancreas is unremarkable. The visualized portions of the IVC are grossly unremarkable. Abdominal aorta is obscured by overlying bowel gas. The right kidney has normal cortical thickness, size, and shape with no hydronephrosis or mass. The right kidney measures 12.3 cm in craniocaudal dimension. There is no abdominal ascites. Impression: 1: There is no ultrasound evidence of acute abdominal process. There is no dilated bile duct seen. Patient is post cholecystectomy. 2: There is geographic hypoechogenicity involving the right lobe of the liver near the region of the kidney. It is possible that this may represent geographic fatty sparing. Nonemergent CT scan of the abdomen with and without contrast is suggested for further evaluation. 3: Hepatomegaly. 4: The remainder of this exam shows no other significant abnormality. Dictated by: Dictated on workstation # [id number]
--- NOTE | 2019-10-09 11:20 | NUR ---
Report received from Melissa COLE. Patient in bed in 404, patient oriented to room and call light at this time.
--- NOTE | 2019-10-09 14:14 | Progress Note ---
Subjective Subjective/Events-last exam Afebrile, feeling somewhat better. States she needs oxygen and cpap set up for home, that she had planned sleep study outpatient 3x but hasn't gotten it done. She states she was on cpap in past but hasn't been for some time. Focused Exam Lactate Level 10/07/19 15:00: Lactic Acid Level 2.34*H 10/07/19 17:20: Lactic Acid Level 1.94 Objective Exam Last Set of Vital Signs Vital Signs Date Time Temp Pulse Resp B/P (MAP) Pulse Ox O2 Delivery O2 Flow Rate FiO2 10/09/19 11:12 98 Nasal Cannula 4.00 10/09/19 11:00 60 20 143/82 (102) 10/09/19 08:00 50 10/09/19 07:16 36.0 Capillary Refill : Less Than 3 Seconds I&O Intake and Output 10/09/19 00:00 Intake Total 4180 ml Output Total 1150 ml Balance 3030 ml Intake Oral 1670 ml IV Total 2510 ml Output Urine Total 1150 ml General: Alert, No Acute Distress Lungs: Other (decreased air movement throughout) Heart: No Murmurs Abdomen: Normal Bowel Sounds Neuro: Normal Speech Psych/Mental Status: Mental Status NL Results/Procedures Lab Laboratory Tests 10/08/19 16:34: Glucometer 231H 10/08/19 20:55: Glucometer 226H 10/09/19 03:41: White Blood Count 38.2*H, Red Blood Count 3.58L, Hemoglobin 10.1L, Hematocrit 32L, Mean Corpuscular Volume 88, Mean Corpuscular Hemoglobin 28, Mean Corpuscular Hemoglobin Concent 32, Red Cell Distribution Width 14.5, Platelet Count 485H, Mean Platelet Volume 9.2, Neutrophils (%) (Auto) 93H, Lymphocytes (%) (Auto) 4L, Monocytes (%) (Auto) 3, Eosinophils (%) (Auto) 0, Basophils (%) (Auto) 0, Neutrophils # (Auto) 35.4H, Lymphocytes # (Auto) 1.6, Monocytes # (Auto) 1.1H, Eosinophils # (Auto) 0.0, Basophils # (Auto) 0.1, Sodium Level 136, Potassium Level 3.7, Chloride Level 96L, Carbon Dioxide Level 26, Anion Gap 14, Blood Urea Nitrogen 29H, Creatinine 0.74, Estimat Glomerular Filtration Rate > 60, BUN/Creatinine Ratio 39, Glucose Level 182H, Calcium Level 9.0, Corrected Calcium 10.0, Phosphorus Level 3.5, Magnesium Level 2.1, Total Bilirubin 0.9, Aspartate Amino Transf (AST/SGOT) 152H, Alanine Aminotransferase (ALT/SGPT) 90H, Alkaline Phosphatase 218H, Total Protein 5.9L, Albumin 2.7L 10/09/19 11:16: Glucometer 208H 10/09/19 11:51: Glucometer 223H Microbiology 10/07/19 Urine Culture - Final, Complete NO GROWTH 10/07/19 MRSA Screen - Final, Complete MRSA not isolated 10/07/19 Blood Culture - Preliminary, Resulted No growth Assessment/Plan Assessment/Plan (1) Pneumonia Status: Acute Assessment & Plan: With marked leukocytosis and hypoxia requiring supplemental oxygen. Improving on vancomycin and zosyn and breathing treatments. Transfer to floor. Qualifiers: (2) Respiratory failure Status: Acute Assessment & Plan: Improving but still requiring supplemental oxygen, continue antibiotics and monitor. Qualifiers: Qualified Codes: J96.01 - Acute respiratory failure with hypoxia; J96.02 - Acute respiratory failure with hypercapnia (3) Diabetes mellitus Status: Chronic Assessment & Plan: On metformin at home. Sliding scale insulin. Qualifiers: (4) Chronic pain Status: Chronic Assessment & Plan: On suboxone outpatient, has been getting hydrocodone inpatient. Will discuss with MAT team. Also note that UDS is pos for methamphetamine and benzo, discussed with MAT team. Qualifiers: Qualified Codes: G89.4 - Chronic pain syndrome (5) Sleep apnea Assessment & Plan: Discussed that her previous test is likely too old to use, will need to get testing outpatient as planned. (6) Leukocytosis Status: Acute Assessment & Plan: Markedly elevated, will check peripheral smear (7) Elevated liver enzymes Status: Acute Assessment & Plan: Abdominal US today. (8) DVT prophylaxis Status: Acute Assessment & Plan: Enoxaparin Clinical Quality Measures DVT/VTE Risk/Contraindication: Risk Factor Score Per Nursin RFS Level Per Nursing on Admit: 2=Moderate SHAMA VITAL MD Oct 09, 2019 14:14
[2019-10-09] MEDS ORDERED: BUPR1FIL3 SL (14:38)
[2019-10-09] MEDS ORDERED: CHLO500T4 PO (14:38)
[2019-10-09] MEDS ORDERED: LEVA1.2543 IH (14:44)
[2019-10-09] MEDS ORDERED: METF500T8 PO (14:44)
[2019-10-09] MEDS ORDERED: FLUO20CA42 PO (14:44)
[2019-10-09] MEDS ORDERED: QUET100T PO (14:44)
[2019-10-09] MEDS ORDERED: RT-ALBUINH IH (14:44)
[2019-10-09] MEDS ORDERED: LISI1TAB8 PO (14:44)
[2019-10-09 16:24] LABS: ABSOLUTE RETIC # 64 10e9/L (24-90); BAND NEUTROPHILS 14 %; BASOPHILS % (MANUAL) 0 %; EOSINOPHILS % (MANUAL) 0 %; LYMPHOCYTES % (MANUAL) 9 %; MONOCYTES % (MANUAL) 2 %; NEUTROPHILS % (MANUAL) 75 %; RBC MORPH NORMAL
[2019-10-09 16:25] LABS: RETICULOCYTE % 1.79 % (0.50-2.40)
[2019-10-09] MEDS: ENOXAPARIN 40 MG/0.4 ML (LOVENOX) SYR SC SCH (17:45)
[2019-10-09] MEDS ORDERED: TROUGH ORDER-PHARMACY XX NR (19:00)
--- NOTE | 2019-10-09 19:58 | Cardiology Progress Note ---
Cardiology SOAP Progress Note Subjective: Shortness of breath. Objective: I&O/Vital Signs 10/10/19 10/10/19 10/10/19 10/10/19 04:30 06:53 08:00 09:53 Temp 36.4 36.2 Pulse 67 66 Resp 18 18 B/P (MAP) 149/82 (104) 156/82 (106) Pulse Ox 93 98 95 O2 Delivery Nasal Cannula Nasal Cannula Nasal Cannula Nasal Cannula O2 Flow Rate 4.00 4.00 4.00 4.00 10/10/19 10/10/19 10/10/19 10:08 10:58 12:00 Temp 36.2 36.5 Pulse 69 75 Resp 18 B/P (MAP) 141/82 (101) Pulse Ox 95 93 95 O2 Delivery Nasal Cannula Nasal Cannula O2 Flow Rate 4.00 4.00 FiO2 36 10/10/19 00:00 Intake Total 580 ml Output Total 600 ml Balance -20 ml Weight (Pounds): 220 Weight (Calculated Kilograms): 99.777791 Constitutional: AAO x 3 Respiratory: chest is bilaterally symmetric, other (decreased bilateral air entry.) Cardiovascular: regular rate-rhythm, S1 and S2 Gastrointestional: soft, audible bowel sounds Extremities: normal range of motion, non-tender, normal inspection, no lower extremity edema bilateral Neurologic/Psychiatric: no motor/sensory deficits, alert, normal mood/affect, oriented x 3 Skin: normal color Results/Procedures: Labs Laboratory Tests 10/09/19 15:35: Glucometer 188H 10/09/19 18:45: Vancomycin Level Trough 21.6H 10/09/19 20:50: Glucometer 197H 10/10/19 05:45: White Blood Count 18.4H, Red Blood Count 3.54L, Hemoglobin 10.3L, Hematocrit 31L , Mean Corpuscular Volume 88, Mean Corpuscular Hemoglobin 29, Mean Corpuscular Hemoglobin Concent 33, Red Cell Distribution Width 14.5, Platelet Count 504H, Mean Platelet Volume 8.9, Sodium Level 142, Potassium Level 3.8, Chloride Level 100, Carbon Dioxide Level 32, Anion Gap 10, Blood Urea Nitrogen 31H, Creatinine 0.66, Estimat Glomerular Filtration Rate > 60, BUN/Creatinine Ratio 47, Glucose Level 108H, Calcium Level 8.7, Corrected Calcium 9.9, Total Bilirubin 0.6, Aspartate Amino Transf (AST/SGOT) 70H, Alanine Aminotransferase (ALT/SGPT) 73H, Alkaline Phosphatase 193H, Total Protein 5.3L, Albumin 2.5L Microbiology 10/07/19 Urine Culture - Final, Complete NO GROWTH 10/07/19 MRSA Screen - Final, Complete MRSA not isolated 10/07/19 Blood Culture - Preliminary, Resulted No growth A/P: Assessment/Dx: Acute respiratory failure, COPD, Pneumonia, Tachycardia, Elevated LFTs Plan: Acute respiratory failure, COPD, pneumonia as the most contributing factors. Severe sepsis, significant leukocytosis and lactic acidosis. Broad-spectrum IV antibiotics. COPD, as above. Pneumonia, Tachycardia, sinus tachycardia, due to systemic illness. No evidence of significant diastolic congestive heart failure with normal BNP. Echocardiogram did show evidence of diastolic dysfunction though. Elevated LFTs, abdominal ultrasound. Thank you for your consultation. Please call me if you have any questions. Kin Ham MD, FACP, FACC, FSCAI, FHRS, CCDS Interventional Cardiology Cardiac Electrophysiology Vascular Medicine and Endovascular Interventions Focused Exam Lactate Level 10/07/19 15:00: Lactic Acid Level 2.34*H 10/07/19 17:20: Lactic Acid Level 1.94 Alana HAM MD Oct 09, 2019 19:58
[2019-10-10] MEDS: RT-ALBUTEROL/IPRATROPIUM 3 ML (DUONEB) VIAL INH SCH ×6 (01:40→21:27)
[2019-10-10] MEDS: LACTATED RINGERS 1,000 ML IV SCH (03:42)
[2019-10-10] MEDS: HYDROcodone/APAP 5 MG/325 MG (LORTAB) TAB PO PRN ×2 (04:28→08:52)
[2019-10-10 04:30] VITALS: BP 149/82
[2019-10-10 06:06] LABS: HEMOGLOBIN 10.3 G/DL (11.5-16.0); MEAN PLATELET VOLUME 8.9 FL (7.4-10.4); RED CELL DISTRIBUTION WIDTH 14.5 % (10.0-14.5); WHITE BLOOD COUNT 18.4 10^3/uL (4.3-11.0)
[2019-10-10] MEDS: PIPERACILLIN/TAZO 4.5 GM/NS 100 ML IV SCH ×6 (06:12→21:35)
[2019-10-10 06:28] LABS: ALANINE AMINOTRANSFERASE 73 U/L (0-55); ALBUMIN 2.5 GM/DL (3.2-4.5); ALKALINE PHOSPHATASE 193 U/L (40-136); BILIRUBIN,TOTAL 0.6 MG/DL (0.1-1.0); BUN/CREATININE RATIO 47; CALCIUM 8.7 MG/DL (8.5-10.1); CARBON DIOXIDE 32 MMOL/L (21-32); CHLORIDE 100 MMOL/L (98-107); CREATININE SERUM 0.66 MG/DL (0.60-1.30); GFR ESTIMATED > 60; GLUCOSE 108 MG/DL (70-105); POTASSIUM 3.8 MMOL/L (3.6-5.0); SODIUM 142 MMOL/L (135-145); TOTAL PROTEIN 5.3 GM/DL (6.4-8.2)
[2019-10-10 08:00] VITALS: BP 156/82
[2019-10-10] MEDS ORDERED: VANCOMYCIN 1 GM/NS 250 ML IVPB IV SCH ×2 (08:00)
[2019-10-10] MEDS ORDERED: SIMV20TA3 PO (08:06)
[2019-10-10] MEDS ORDERED: GUAI400T44 PO (08:46)
[2019-10-10] MEDS: HYDROCHLOROTHIAZIDE 12.5 MG (HCTZ) CAP PO SCH (08:51)
[2019-10-10] MEDS: lisINopril 20 MG (PRINIVIL) TABLET PO SCH (08:51)
[2019-10-10] MEDS: SENNA W/DOCUSATE (SENOKOT S) TABLET PO SCH ×2 (08:51→21:35)
[2019-10-10] MEDS: FLUoxetine HCL 20 MG (PROzac) CAP PO SCH (08:51)
[2019-10-10] MEDS ORDERED: QUET100T69 PO (09:41)
--- NOTE | 2019-10-10 09:44 | NUR ---
SPOKE WITH PT (PT HAD HER BOTTLES) WENT THRU THE EXT MED HISTORY AND CALLED [facility] TO COMPLETE THE MED REC. PT HAD HER HOME MEDS AND TOLD ME HOW SHE TAKES THEM BUT NOT ALL DIRECTIONS ON THE BOTTLES MATCHED. SHE WAS UNSURE HOW SHE TOOK SEROQUEL. DIRECTIONS ON THE BOTTLE SAY " 1 & TABS HS" HOWEVER PT STATES SHE TAKES 1 WHEN SHE GOES TO BED AND THEN IF SLEEP IS NOT ACHIEVED SHE WILL TAKE ANOTHER WHOLE TABLET A FEW HOURS LATER. THE FOLLOWING ARE FILL DATES NOT LISTED ON THE EXT MED HISTORY: 08-17-2019 LEVALBUTEROL #[id number] 09-22-2019 SUBOXONE #56/28DS 09-22-2019 CHLORZOXAZONE #90/30DS OTC MEDS: MUCINEX
[2019-10-10] MEDS ORDERED: NS 100 ML (IVPB) BAG IV ONE (09:45)
[2019-10-10] MEDS ORDERED: IOHEXOL 350 MG/ML 100 ML (OMNIPAQUE 350) VIAL IV ONE (09:45)
[2019-10-10] MEDS ORDERED: HOLD METFORMIN - RECEIVED CONTRAST 20 ML VIAL IV SCH (09:45)
[2019-10-10 10:08] VITALS: BP 156/82
[2019-10-10 12:00] VITALS: BP 141/82
--- NOTE | 2019-10-10 12:49 | Diagnostic Imaging Report ---
PROCEDURE: CT abdomen with and without contrast. TECHNIQUE: Multiple contiguous axial CT images of the abdomen were obtained prior to and after intravenous administration of iodinated contrast. Auto Exposure Controls were utilized during the CT exam to meet ALARA standards for radiation dose reduction. INDICATION: Upper abdominal pain for 2 days. COMPARISON: Abdominal ultrasound on 10/09/2019. CT chest on 10/08/2019. CT abdomen on 06/17/2011. FINDINGS: Interval improvement in consolidative opacities in the right lung base with a trace right pleural effusion. The left lung base is well aerated. The heart size is prominent. Trace pericardial effusion is seen. There is hepatic steatosis. No focal hepatic lesions are seen. The gallbladder is surgically absent. Pneumobilia is visualized predominantly in the left hepatic lobe. The portal vein is patent. The spleen, pancreas, adrenal glands, and kidneys demonstrate no acute abnormalities. Scattered calcified granulomas are noted in the spleen. There is no pathologically enlarged mesenteric or retroperitoneal adenopathy. The included bowel loops are nondilated. There is no free fluid or free air. Degenerative changes are again noted in the lower thoracic and upper lumbar spine. There is calcified aortic atherosclerotic plaque without evidence of aneurysm. IMPRESSION: 1. Hepatic steatosis. No focal hepatic lesions. The abnormality seen on ultrasound performed the prior day is favored to represent geographic fatty sparing. 2. Pneumobilia in the left hepatic lobe, likely due to sphincter of Jose dysfunction. 3. Interval improvement in consolidative opacities in the right lung base with trace right pleural effusion. Dictated by: Dictated on workstation # [id number]
--- NOTE | 2019-10-10 14:56 | Cardiology Progress Note ---
Cardiology SOAP Progress Note Subjective: Mild shortness of breath. Objective: I&O/Vital Signs 10/10/19 10/10/19 10/10/19 10/10/19 04:30 06:53 08:00 09:53 Temp 36.4 36.2 Pulse 67 66 Resp 18 18 B/P (MAP) 149/82 (104) 156/82 (106) Pulse Ox 93 98 95 O2 Delivery Nasal Cannula Nasal Cannula Nasal Cannula Nasal Cannula O2 Flow Rate 4.00 4.00 4.00 4.00 10/10/19 10/10/19 10/10/19 10:08 10:58 12:00 Temp 36.2 36.5 Pulse 69 75 Resp 18 B/P (MAP) 141/82 (101) Pulse Ox 95 93 95 O2 Delivery Nasal Cannula Nasal Cannula O2 Flow Rate 4.00 4.00 FiO2 36 10/10/19 00:00 Intake Total 580 ml Output Total 600 ml Balance -20 ml Weight (Pounds): 220 Weight (Calculated Kilograms): 99.356095 Constitutional: AAO x 3 Respiratory: chest is bilaterally symmetric, other (decreased bilateral air entry.) Cardiovascular: regular rate-rhythm, S1 and S2 Gastrointestional: soft, audible bowel sounds Extremities: normal range of motion, non-tender, normal inspection, no lower extremity edema bilateral Neurologic/Psychiatric: no motor/sensory deficits, alert, normal mood/affect, oriented x 3 Skin: normal color Results/Procedures: Labs Laboratory Tests 10/09/19 15:35: Glucometer 188H 10/09/19 18:45: Vancomycin Level Trough 21.6H 10/09/19 20:50: Glucometer 197H 10/10/19 05:45: White Blood Count 18.4H, Red Blood Count 3.54L, Hemoglobin 10.3L, Hematocrit 31L , Mean Corpuscular Volume 88, Mean Corpuscular Hemoglobin 29, Mean Corpuscular Hemoglobin Concent 33, Red Cell Distribution Width 14.5, Platelet Count 504H, Mean Platelet Volume 8.9, Sodium Level 142, Potassium Level 3.8, Chloride Level 100, Carbon Dioxide Level 32, Anion Gap 10, Blood Urea Nitrogen 31H, Creatinine 0.66, Estimat Glomerular Filtration Rate > 60, BUN/Creatinine Ratio 47, Glucose Level 108H, Calcium Level 8.7, Corrected Calcium 9.9, Total Bilirubin 0.6, Aspartate Amino Transf (AST/SGOT) 70H, Alanine Aminotransferase (ALT/SGPT) 73H, Alkaline Phosphatase 193H, Total Protein 5.3L, Albumin 2.5L Microbiology 10/07/19 Urine Culture - Final, Complete NO GROWTH 10/07/19 MRSA Screen - Final, Complete MRSA not isolated 10/07/19 Blood Culture - Preliminary, Resulted No growth A/P: Assessment/Dx: Acute respiratory failure, COPD, Pneumonia, Tachycardia, Elevated LFTs Plan: Acute respiratory failure, COPD, pneumonia as the most contributing factors. Severe sepsis, significant leukocytosis and lactic acidosis. Broad-spectrum IV antibiotics. COPD, as above. Pneumonia, Tachycardia, sinus tachycardia, due to systemic illness. No evidence of significant diastolic congestive heart failure with normal BNP. Echocardiogram did show evidence of diastolic dysfunction though. Elevated LFTs, hepatic steatosis Thank you for your consultation. Please call me if you have any questions. Kin Ham MD, FACP, FACC, FSCAI, FHRS, CCDS Interventional Cardiology Cardiac Electrophysiology Vascular Medicine and Endovascular Interventions Focused Exam Lactate Level 10/07/19 15:00: Lactic Acid Level 2.34*H 10/07/19 17:20: Lactic Acid Level 1.94 Alana HAM MD Oct 10, 2019 14:56
--- NOTE | 2019-10-10 14:56 | Progress Note ---
Subjective Subjective/Events-last exam Afebrile, feeling somewhat better today. Focused Exam Lactate Level 10/07/19 15:00: Lactic Acid Level 2.34*H 10/07/19 17:20: Lactic Acid Level 1.94 Objective Exam Last Set of Vital Signs Vital Signs Date Time Temp Pulse Resp B/P (MAP) Pulse Ox O2 Delivery O2 Flow Rate FiO2 10/10/19 14:44 91 Nasal Cannula 2.00 10/10/19 12:00 36.5 75 18 141/82 (101) 10/10/19 10:08 36 Capillary Refill : Less Than 3 Seconds I&O Intake and Output 10/10/19 00:00 Intake Total 1735 ml Output Total 1150 ml Balance 585 ml Intake Oral 760 ml IV Total 975 ml Output Urine Total 1150 ml # Bowel Movements 1 General: Alert, No Acute Distress Lungs: Other (ronchi throughout, end expiratory wheeze) Heart: Regular Rate, No Murmurs Neuro: Normal Speech Psych/Mental Status: Mood NL Results/Procedures Lab Laboratory Tests 10/09/19 15:35: Glucometer 188H 10/09/19 18:45: Vancomycin Level Trough 21.6H 10/09/19 20:50: Glucometer 197H 10/10/19 05:45: White Blood Count 18.4H, Red Blood Count 3.54L, Hemoglobin 10.3L, Hematocrit 31L , Mean Corpuscular Volume 88, Mean Corpuscular Hemoglobin 29, Mean Corpuscular Hemoglobin Concent 33, Red Cell Distribution Width 14.5, Platelet Count 504H, Mean Platelet Volume 8.9, Sodium Level 142, Potassium Level 3.8, Chloride Level 100, Carbon Dioxide Level 32, Anion Gap 10, Blood Urea Nitrogen 31H, Creatinine 0.66, Estimat Glomerular Filtration Rate > 60, BUN/Creatinine Ratio 47, Glucose Level 108H, Calcium Level 8.7, Corrected Calcium 9.9, Total Bilirubin 0.6, Aspartate Amino Transf (AST/SGOT) 70H, Alanine Aminotransferase (ALT/SGPT) 73H, Alkaline Phosphatase 193H, Total Protein 5.3L, Albumin 2.5L Microbiology 10/07/19 Urine Culture - Final, Complete NO GROWTH 10/07/19 MRSA Screen - Final, Complete MRSA not isolated 10/07/19 Blood Culture - Preliminary, Resulted No growth Assessment/Plan Assessment/Plan (1) Pneumonia Status: Acute Assessment & Plan: With marked leukocytosis and hypoxia requiring supplemental oxygen. Improving on vancomycin and zosyn and breathing treatments. Transfer to floor. 10/10 vancomycin d/c'd. Leukocytosis markedly improved, continue Zosyn and supportive treatments. Qualifiers: (2) Respiratory failure Status: Acute Assessment & Plan: Improving but still requiring supplemental oxygen, continue antibiotics and monitor. Qualifiers: Qualified Codes: J96.01 - Acute respiratory failure with hypoxia; J96.02 - Acute respiratory failure with hypercapnia (3) Diabetes mellitus Status: Chronic Assessment & Plan: On metformin at home. Sliding scale insulin. Qualifiers: (4) Chronic pain Status: Chronic Assessment & Plan: On suboxone outpatient, has been getting hydrocodone inpatient. Will discuss with MAT team. Also note that UDS is pos for methamphetamine and benzo, discussed with MAT team. Qualifiers: Qualified Codes: G89.4 - Chronic pain syndrome (5) Sleep apnea Assessment & Plan: Discussed that her previous test is likely too old to use, will need to get testing outpatient as planned. (6) Leukocytosis Status: Acute Assessment & Plan: Markedly elevated, will check peripheral smear (7) Elevated liver enzymes Status: Acute Assessment & Plan: Abdominal US today. 10/10 abdominal US with area of possible focal fat sparing, CT abdomen with and without ordered for follow-up. Hepatitis panel pending. (8) DVT prophylaxis Status: Acute Assessment & Plan: Enoxaparin Clinical Quality Measures DVT/VTE Risk/Contraindication: Risk Factor Score Per Nursin RFS Level Per Nursing on Admit: 2=Moderate SHAMA VITAL MD Oct 10, 2019 14:56
[2019-10-10 16:00] VITALS: BP 157/89
[2019-10-10] MEDS: ENOXAPARIN 40 MG/0.4 ML (LOVENOX) SYR SC SCH (16:37)
[2019-10-10 19:00] VITALS: BP 149/78
[2019-10-10 19:57] LABS: HEPATITIS C ANTIBODY C Reactive (Non-Reactive)
[2019-10-11] VITALS (7 sets, daily range): BP systolic 138–162; BP diastolic 70–83
[2019-10-11] MEDS: RT-ALBUTEROL/IPRATROPIUM 3 ML (DUONEB) VIAL INH SCH ×6 (01:26→21:54)
[2019-10-11 04:04] LABS: BASOPHILS % (AUTO) 0 % (0-10); EOSINOPHILS # (AUTO) 0.1 10^3/uL (0.0-0.3); EOSINOPHILS % (AUTO) 0 % (0-10); HEMATOCRIT 35 % (35-52); HEMOGLOBIN 11.5 G/DL (11.5-16.0); LYMPHOCYTES # (AUTO) 1.8 X 10^3 (1.0-4.0); LYMPHOCYTES % (AUTO) 11 % (12-44); MEAN CORPUSCULAR HGB CONC 33 G/DL (32-36); MEAN CORPUSCULAR VOLUME 87 FL (80-99); MEAN PLATELET VOLUME 8.8 FL (7.4-10.4); MONOCYTES # (AUTO) 0.9 X 10^3 (0.0-1.0); MONOCYTES % (AUTO) 5 % (0-12); NEUTROPHILS # (AUTO) 13.6 X 10^3 (1.8-7.8); NEUTROPHILS % (AUTO) 84 % (42-75); PLATELET COUNT 573 10^3/uL (130-400); RED CELL DISTRIBUTION WIDTH 14.7 % (10.0-14.5); WHITE BLOOD COUNT 16.3 10^3/uL (4.3-11.0)
[2019-10-11 04:21] LABS: MEAN CORPUSCULAR HEMOGLOBIN 28 PG (25-34)
[2019-10-11 04:30] LABS: ALANINE AMINOTRANSFERASE 71 U/L (0-55); ALBUMIN 2.8 GM/DL (3.2-4.5); ALKALINE PHOSPHATASE 213 U/L (40-136); BILIRUBIN,TOTAL 0.8 MG/DL (0.1-1.0); BUN/CREATININE RATIO 31; CALCIUM 8.7 MG/DL (8.5-10.1); CARBON DIOXIDE 31 MMOL/L (21-32); CHLORIDE 96 MMOL/L (98-107); CREATININE SERUM 0.59 MG/DL (0.60-1.30); GFR ESTIMATED > 60; GLUCOSE 115 MG/DL (70-105); POTASSIUM 3.1 MMOL/L (3.6-5.0); SODIUM 141 MMOL/L (135-145)
[2019-10-11] MEDS: LACTATED RINGERS 1,000 ML IV SCH ×2 (06:20→18:12)
[2019-10-11] MEDS: PIPERACILLIN/TAZO 4.5 GM/NS 100 ML IV SCH ×6 (06:20→23:01)
[2019-10-11] MEDS: lisINopril 20 MG (PRINIVIL) TABLET PO SCH (08:21)
[2019-10-11] MEDS: FLUoxetine HCL 20 MG (PROzac) CAP PO SCH (08:21)
[2019-10-11] MEDS: HYDROCHLOROTHIAZIDE 12.5 MG (HCTZ) CAP PO SCH (08:21)
[2019-10-11] MEDS: SENNA W/DOCUSATE (SENOKOT S) TABLET PO SCH ×2 (08:21→21:10)
[2019-10-11] MEDS: ALPRAZolam 0.25 MG (XANAX) TAB PO PRN (13:03)
[2019-10-11] MEDS: HYDROcodone/APAP 5 MG/325 MG (LORTAB) TAB PO PRN ×3 (13:03→23:06)
--- NOTE | 2019-10-11 13:34 | Progress Note ---
Subjective Subjective/Events-last exam Afebrile, remains supplemental oxygen dependent and short of breath. Objective Exam Last Set of Vital Signs Vital Signs Date Time Temp Pulse Resp B/P (MAP) Pulse Ox O2 Delivery O2 Flow Rate FiO2 10/11/19 11:06 36.2 63 20 161/77 (105) 94 High Flow N/C 2.00 10/10/19 10:08 36 Capillary Refill : Less Than 3 Seconds I&O Intake and Output 10/11/19 00:00 Intake Total 3110 ml Output Total 600 ml Balance 2510 ml Intake Oral 1990 ml IV Total 1120 ml Output Urine Total 600 ml # Voids 7 # Bowel Movements 2 General: Mild Distress Lungs: Other (decreased air movement throughout) Heart: Regular Rate, No Murmurs Psych/Mental Status: Other (affect flat) Results/Procedures Lab Laboratory Tests 10/11/19 03:20: White Blood Count 16.3H, Red Blood Count 4.04L, Hemoglobin 11.5, Hematocrit 35, Mean Corpuscular Volume 87, Mean Corpuscular Hemoglobin 28, Mean Corpuscular Hemoglobin Concent 33, Red Cell Distribution Width 14.7H, Platelet Count 573H, Mean Platelet Volume 8.8, Neutrophils (%) (Auto) 84H, Lymphocytes (%) (Auto) 11L , Monocytes (%) (Auto) 5, Eosinophils (%) (Auto) 0, Basophils (%) (Auto) 0, Neutrophils # (Auto) 13.6H, Lymphocytes # (Auto) 1.8, Monocytes # (Auto) 0.9, Eosinophils # (Auto) 0.1, Basophils # (Auto) 0.0, Sodium Level 141, Potassium Level 3.1L, Chloride Level 96L, Carbon Dioxide Level 31, Anion Gap 14, Blood Urea Nitrogen 18, Creatinine 0.59L, Estimat Glomerular Filtration Rate > 60, BUN/Creatinine Ratio 31, Glucose Level 115H, Calcium Level 8.7, Corrected Calcium 9.7, Total Bilirubin 0.8, Aspartate Amino Transf (AST/SGOT) 52H, Alanine Aminotransferase (ALT/SGPT) 71H, Alkaline Phosphatase 213H, Total Protein 6.0L, Albumin 2.8L 10/11/19 05:52: 10/11/19 06:08: Glucometer 121H 10/11/19 10:31: Glucometer 153H Microbiology 10/07/19 Urine Culture - Final, Complete NO GROWTH 10/07/19 MRSA Screen - Final, Complete MRSA not isolated 10/07/19 Blood Culture - Preliminary, Resulted No growth Assessment/Plan Assessment/Plan (1) Pneumonia Status: Acute Assessment & Plan: With marked leukocytosis and hypoxia requiring supplemental oxygen. Improving on vancomycin and zosyn and breathing treatments. Transfer to floor. 10/10 vancomycin d/c'd. Leukocytosis markedly improved, continue Zosyn and supportive treatments. 10/11 leukocytosis continuing to improve, supplemental oxygen requirement decreasing but still present. Qualifiers: (2) Respiratory failure Status: Acute Assessment & Plan: Improving but still requiring supplemental oxygen, continue antibiotics and monitor. Qualifiers: Qualified Codes: J96.01 - Acute respiratory failure with hypoxia; J96.02 - Acute respiratory failure with hypercapnia (3) Diabetes mellitus Status: Chronic Assessment & Plan: On metformin at home. Sliding scale insulin. Qualifiers: (4) Chronic pain Status: Chronic Assessment & Plan: On suboxone outpatient, has been getting hydrocodone inpatient. Will discuss with MAT team. Also note that UDS is pos for methamphetamine and benzo, discussed with MAT team. Qualifiers: Qualified Codes: G89.4 - Chronic pain syndrome (5) Sleep apnea Assessment & Plan: Discussed that her previous test is likely too old to use, will need to get testing outpatient as planned. (6) Leukocytosis Status: Acute Assessment & Plan: Markedly elevated, will check peripheral smear PENDING (7) Elevated liver enzymes Status: Acute Assessment & Plan: Abdominal US today. 10/10 abdominal US with area of possible focal fat sparing, CT abdomen with and without ordered for follow-up. Hepatitis panel pending. 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 Hep C antibody positive, will check viral PCR and genotype. (8) DVT prophylaxis Status: Acute Assessment & Plan: Enoxaparin Clinical Quality Measures DVT/VTE Risk/Contraindication: Risk Factor Score Per Nursin RFS Level Per Nursing on Admit: 2=Moderate SHAMA VITAL MD Oct 11, 2019 13:34
--- NOTE | 2019-10-11 13:41 | Cardiology Progress Note ---
Cardiology SOAP Progress Note Subjective: Improved shortness of breath. However still requiring oxygen. Objective: I&O/Vital Signs 10/11/19 10/11/19 10/11/19 10/11/19 04:00 06:15 07:16 09:00 Temp 36.2 36.4 Pulse 60 72 Resp 20 24 B/P (MAP) 160/83 (108) 162/81 (108) Pulse Ox 92 90 92 92 O2 Delivery High Flow N/C High Flow N/C High Flow N/C High Flow N/C O2 Flow Rate 2.00 2.00 2.00 2.00 10/11/19 10/11/19 09:22 11:06 Temp 36.2 Pulse 63 Resp 20 B/P (MAP) 161/77 (105) Pulse Ox 93 94 O2 Delivery High Flow N/C High Flow N/C O2 Flow Rate 2.00 2.00 10/11/19 00:00 Intake Total 1580 ml Output Total 600 ml Balance 980 ml Weight (Pounds): 220 Weight (Calculated Kilograms): 99.068763 Constitutional: AAO x 3 Respiratory: chest is bilaterally symmetric, other (decreased bilateral air e ntry.) Cardiovascular: regular rate-rhythm, S1 and S2 Gastrointestional: soft, audible bowel sounds Extremities: normal range of motion, non-tender, normal inspection, no lower extremity edema bilateral Neurologic/Psychiatric: no motor/sensory deficits, alert, normal mood/affect, oriented x 3 Skin: normal color Results/Procedures: Labs Laboratory Tests 10/11/19 03:20: White Blood Count 16.3H, Red Blood Count 4.04L, Hemoglobin 11.5, Hematocrit 35, Mean Corpuscular Volume 87, Mean Corpuscular Hemoglobin 28, Mean Corpuscular Hemoglobin Concent 33, Red Cell Distribution Width 14.7H, Platelet Count 573H, Mean Platelet Volume 8.8, Neutrophils (%) (Auto) 84H, Lymphocytes (%) (Auto) 11L , Monocytes (%) (Auto) 5, Eosinophils (%) (Auto) 0, Basophils (%) (Auto) 0, N eutrophils # (Auto) 13.6H, Lymphocytes # (Auto) 1.8, Monocytes # (Auto) 0.9, Eosinophils # (Auto) 0.1, Basophils # (Auto) 0.0, Sodium Level 141, Potassium Level 3.1L, Chloride Level 96L, Carbon Dioxide Level 31, Anion Gap 14, Blood Urea Nitrogen 18, Creatinine 0.59L, Estimat Glomerular Filtration Rate > 60, BU N/Creatinine Ratio 31, Glucose Level 115H, Calcium Level 8.7, Corrected Calcium 9.7, Total Bilirubin 0.8, Aspartate Amino Transf (AST/SGOT) 52H, Alanine Aminotransferase (ALT/SGPT) 71H, Alkaline Phosphatase 213H, Total Protein 6.0L, Albumin 2.8L 10/11/19 05:52: 10/11/19 06:08: Glucometer 121H 10/11/19 10:31: Glucometer 153H Microbiology 10/07/19 Urine Culture - Final, Complete NO GROWTH 10/07/19 MRSA Screen - Final, Complete MRSA not isolated 10/07/19 Blood Culture - Preliminary, Resulted No growth A/P: Assessment/Dx: Acute respiratory failure, COPD, Pneumonia, Tachycardia, Elevated LFTs Plan: Acute respiratory failure, COPD, pneumonia as the most contributing factors. Severe sepsis, significant leukocytosis and lactic acidosis. Broad-spectrum IV antibiotics. Significant improvement. COPD, as above. Pneumonia, Tachycardia, sinus tachycardia, due to systemic illness. No evidence of significant diastolic congestive heart failure with normal BNP. Echocardiogram did show evidence of diastolic dysfunction though. Elevated LFTs, hepatic steatosis Thank you for your consultation. Please call me if you have any questions. Kin Ham MD, FACP, FACC, FSCAI, FHRS, CCDS Interventional Cardiology Cardiac Electrophysiology Vascular Medicine and Endovascular Interventions Alana HAM MD Oct 11, 2019 13:41
--- NOTE | 2019-10-11 16:00 | NUR ---
RECEIVED REPORT FROM DEVAUGHN COLE TO ASSUME NURSING CARE FOR THIS PATIENT,
[2019-10-11] MEDS: ACETAMINOPHEN 500 MG TAB (TYLENOL) PO PRN (16:03)
[2019-10-11] MEDS: ENOXAPARIN 40 MG/0.4 ML (LOVENOX) SYR SC SCH (17:13)
[2019-10-11] MEDS ORDERED: TROUGH ORDER-PHARMACY XX NR (19:00)
[2019-10-12] MEDS: RT-ALBUTEROL/IPRATROPIUM 3 ML (DUONEB) VIAL INH SCH ×3 (01:29→10:34)
[2019-10-12 03:52] VITALS: BP 163/79
[2019-10-12] MEDS: PIPERACILLIN/TAZO 4.5 GM/NS 100 ML IV SCH ×2 (06:14)
[2019-10-12 06:25] LABS: MEAN PLATELET VOLUME 8.8 FL (7.4-10.4); RED CELL DISTRIBUTION WIDTH 14.6 % (10.0-14.5); WHITE BLOOD COUNT 16.1 10^3/uL (4.3-11.0)
[2019-10-12 06:54] LABS: ALANINE AMINOTRANSFERASE 53 U/L (0-55); ALBUMIN 2.6 GM/DL (3.2-4.5); ALKALINE PHOSPHATASE 171 U/L (40-136); BILIRUBIN,TOTAL 0.6 MG/DL (0.1-1.0); BUN/CREATININE RATIO 25; CALCIUM 8.2 MG/DL (8.5-10.1); CARBON DIOXIDE 30 MMOL/L (21-32); CHLORIDE 96 MMOL/L (98-107); CREATININE SERUM 0.56 MG/DL (0.60-1.30); GFR ESTIMATED > 60; GLUCOSE 134 MG/DL (70-105); POTASSIUM 3.1 MMOL/L (3.6-5.0); SODIUM 140 MMOL/L (135-145); TOTAL PROTEIN 5.5 GM/DL (6.4-8.2)
[2019-10-12 07:33] VITALS: BP 135/69
[2019-10-12] MEDS: lisINopril 20 MG (PRINIVIL) TABLET PO SCH (07:52)
[2019-10-12] MEDS: FLUoxetine HCL 20 MG (PROzac) CAP PO SCH (07:52)
[2019-10-12] MEDS: ALPRAZolam 0.25 MG (XANAX) TAB PO PRN (07:52)
[2019-10-12] MEDS: HYDROCHLOROTHIAZIDE 12.5 MG (HCTZ) CAP PO SCH (07:52)
[2019-10-12] MEDS: HYDROcodone/APAP 5 MG/325 MG (LORTAB) TAB PO PRN (07:53)
[2019-10-12] MEDS: SENNA W/DOCUSATE (SENOKOT S) TABLET PO SCH (09:23)
--- NOTE | 2019-10-12 10:45 | NUR ---
PT REQUIRES 2l OF OXYGEN AT REST. PT THEN WAS WALKED FOR 6 MINUTES AND WALKED 600 FEET AND REQUIRED 5L TO MAINTTAIN A SAT OF 90%
[2019-10-12] MEDS ORDERED: CEFD300C3 PO (10:56)
--- NOTE | 2019-10-12 11:07 | Discharge Summary ---
Discharge Summary Hospital Course Problems/Diagnosis: (1) Pneumonia Status: Acute Assessment & Plan: With marked leukocytosis and hypoxia requiring supplemental oxygen. Improving on vancomycin and zosyn and breathing treatments. Transfer to floor. 10/10 vancomycin d/c'd. Leukocytosis markedly improved, continue Zosyn and supportive treatments. 10/11 leukocytosis continuing to improve, supplemental oxygen requirement d ecreasing but still present. 10/12 leukocytosis persistent but improved, desiring to go home, required home O2 which was ordered, continue cefdinir outpatient x 5 more days. Qualifiers: (2) Diabetes mellitus Status: Chronic Assessment & Plan: On metformin at home. Sliding scale insulin. Qualifiers: (3) Chronic pain Status: Chronic Assessment & Plan: On suboxone outpatient, has been getting hydrocodone inpatient. Qualifiers: Qualified Codes: G89.4 - Chronic pain syndrome (4) Sleep apnea Assessment & Plan: Discussed that her previous test is likely too old to use, w ill need to get testing outpatient as planned. (5) Leukocytosis Status: Acute Assessment & Plan: Markedly elevated, will check peripheral smear PENDING at [place] (6) Elevated liver enzymes Status: Acute Assessment & Plan: Abdominal US today. 10/10 abdominal US with area of possible focal fat sparing, CT abdomen with and without ordered for follow-up. Hepatitis panel pending. 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 (7) Hepatitis C antibody positive in blood Assessment & Plan: Patient does not recall history of positive in past, Hep C PCR and genotype pending at d/c. (8) Positive urine drug screen Assessment & Plan: UDS positive on admit for methamphetamine, patient did admit to use. Hospital Course Date of Admission: Oct 07, 2019 at 15:42 Admission Diagnosis : Family Physician/Provider: Santino Corea MD Date of Discharge: 10/12/19 Discharge Diagnosis: SEe problem list Hospital Course: SEe problem list Labs and Pending Lab Test: Laboratory Tests 10/11/19 15:54: Glucometer 192H 10/11/19 21:06: Glucometer 162H 10/12/19 05:37: Glucometer 145H 10/12/19 06:16: White Blood Count 16.1H, Red Blood Count 3.82L, Hemoglobin 11.0L, Hematocrit 33L , Mean Corpuscular Volume 87, Mean Corpuscular Hemoglobin 29, Mean Corpuscular Hemoglobin Concent 33, Red Cell Distribution Width 14.6H, Platelet Count 473H, Mean Platelet Volume 8.8, Sodium Level 140, Potassium Level 3.1L, Chloride Level 96L, Carbon Dioxide Level 30, Anion Gap 14, Blood Urea Nitrogen 14, Creatinine 0.56L, Estimat Glomerular Filtration Rate > 60, BUN/Creatinine Ratio 25, Glucose Level 134H, Calcium Level 8.2L, Corrected Calcium 9.3, Total Bilirubin 0.6, A spartate Amino Transf (AST/SGOT) 34, Alanine Aminotransferase (ALT/SGPT) 53, Alkaline Phosphatase 171H, Total Protein 5.5L, Albumin 2.6L Microbiology 10/07/19 Urine Culture - Final, Complete NO GROWTH 10/07/19 MRSA Screen - Final, Complete MRSA not isolated 10/07/19 Blood Culture - Preliminary, Resulted No growth Home Meds Active Cefdinir 300 Mg Capsule 300 Mg PO BID 5 Days Albuterol Sulfate 2.5 Mg/3 Ml Vial.neb 2.5 Mg IH Q4H PRN Reported Quetiapine Fumarate 100 Mg Tablet 100 Mg PO HS PRN TAKES A FEW HOURS AFTER INITAL DOSE IF SLEEP IS NOT ACHIEVED Mucus Relief (Guaifenesin) 400 Mg Tablet 400 Mg PO BID Simvastatin 20 Mg Tablet 20 Mg PO HS Seroquel (Quetiapine Fumarate) 100 Mg Tablet 100 Mg PO HS Metformin HCl ER (Metformin HCl) 500 Mg Tab.er.24h 1,000 Mg PO DAILY Levalbuterol HCl 1.25 Mg/3 Ml Vial.neb 1.25 Mg IH Q8H PRN Prozac (Fluoxetine HCl) 20 Mg Capsule 20 Mg PO HS Lisinopril-Hctz 20-12.5 mg Tab (Lisinopril/Hydrochlorothiazide) 1 Each Tablet 1 Each PO HS Suboxone 8 mg-2 mg Sl Film (Buprenorphine HCl/Naloxone HCl) 1 Each Film 1 Each SL BID Chlorzoxazone 500 Mg Tablet 500 Mg PO TID Assessment/Pt DC Instructions Follow up with Dr. Corea on 10/16 at 11:40 am. Discharge Diet: ADA Diet Orders-Post D/C & Referrals Pneu Vac Indicated: Yes Discharge Physical Examination Allergies: Coded Allergies: fentanyl (Unverified Allergy, Unknown, 01/25/13) Uncoded Allergies: phentanyl (Allergy, Unknown, 06/30/18) General Appearance: No Apparent Distress Respiratory: Wheezing (end expiratory) Cardiovascular: Regular Rate, Rhythm, No Edema Neurologic/Psychiatric: Alert, Normal Mood/Affect Copy Copies To 1: SANTINO COREA MD Discharge Summary Date of Admission Date of Discharge Clinical Quality Measures DVT/VTE Risk/Contraindication: Risk Factor Score Per Nursin RFS Level Per Nursing on Admit: 2=Moderate SHAMA VITAL MD Oct 12, 2019 11:07
--- NOTE | 2019-10-12 11:30 | NUR ---
CM FINALIZED DISCHARGE PLAN: Patient is dismissing to home today with new continuous oxygen. Visited with patient et she reports that she has used oxygen in the past but can not remember the supplier. DME choice form presented to Estella et she selected [facility] for her new oxygen needs. She will need o2 a 2LPM continuous at rest et 5LPM continuous with exercise/exertion. Spoke with [facility] they will deliver her oxygen here to her room. Patient declines any other needs or interventions such as offered HHC. She reports that she is anxious to get home et does not need any help. No further interventions noted at this time. Updated primary care nurse that once oxygen is delivered there are no further interventions for delinquency prevention social worker.
[2019-10-12 11:46] VITALS: BP 124/67
[2019-10-12 13:00] VITALS: BP 124/67
--- NOTE | 2019-10-13 14:26 | Physician Query Clarification ---
PQ-Further Specificity Admission/Discharge Admission Date: Oct 07, 2019 at 15:42 Discharge Date: Oct 12, 2019 at 13:00 The medical record reflects the following clinical scenario: History/Risk Factors: Sepsis, COPD AE, pneumonia Clinical Findings: lactic acid 2.34, WBC 46.4, Consolidative opacities in the right upper and lower lobes, representing pneumonia Treatment: IV Zosyn, IV Vancomycin, Nebulizers, O2 @ 6L, Bipap Question: Can you further specify the type of pneumonia per the clinical indicators above? Pneumonic RUL probably aspiration was documented by Cody Wilkins Please document a response in the Progress Notes or Discharge Summary. 1. Aspiration pneumonia 2. Infectious lobar pneumonia 3. Other, with explanation of the clinical findings. 4. Clinically undetermined, no explanation for the clinical findings. PHYSICIAN RESPONSE Can you specify per above: 2 Please remember a lack of response to the above will prompt a phone page by CDI/Coding staff. In responding to this query, please exercise your independent professional judgment. The purpose of this communication is to more accurately reflect the complexity of your patients condition. The fact that a question is asked does not imply that any particular answer is desired or expected. Thank you for your timely response to this clarification. Requestors name: [ ] Phone # [ ] THIS PHYSICIAN QUERY FORM IS A PERMANENT PART OF THE MEDICAL RECORD ELLA AWAD Oct 13, 2019 14:26 SHAMA VITAL MD Oct 14, 2019 19:52
== END 2019-10-12 13:00 | disposition home or self-care (01) | DRG 871 ==
LOC: EDUNIT# 14:47 → ER 14:48 → ICU 15:42 → 4TH 10-09 11:34
PROVIDERS: ADMIT Internal Medicine; ATTEND Family Medicine
PROC: 5A09357 Assistance with Respiratory Ventilation, Less than 24 Consecutive Hours, Continuous Positive Airway Pressure (ICD-10-PCS; principal; 2019-10-07)
DX: A41.9 Sepsis, unspecified organism (principal); J96.21 Acute and chronic respiratory failure with hypoxia; J18.1 Lobar pneumonia, unspecified organism; J43.9 Emphysema, unspecified; F17.210 Nicotine dependence, cigarettes, uncomplicated; G47.30 Sleep apnea, unspecified; E78.00 Pure hypercholesterolemia, unspecified; I10 Essential (primary) hypertension; K44.9 Diaphragmatic hernia without obstruction or gangrene; E11.9 Type 2 diabetes mellitus without complications; Z79.84 Long term (current) use of oral hypoglycemic drugs; F41.9 Anxiety disorder, unspecified; F32.9 Major depressive disorder, single episode, unspecified; E87.6 Hypokalemia; F15.10 Other stimulant abuse, uncomplicated; G89.29 Other chronic pain; K76.0 Fatty (change of) liver, not elsewhere classified; B19.20 Unspecified viral hepatitis C without hepatic coma; M54.9 Dorsalgia, unspecified
CPT/HCPCS: 36415; 71045; 71260; 74170; 76705; 80048; 80053; 80074; 80202; 80306; 81000; 82805; 82962; 83605; 83735; 83880; 84100; 84439; 84443; 84484; 85007; 85025; 85027; 85045; 85610; 87040; 87081; 87088; 87522; 87902; 93005; 93306; 94640; 94664; 94760; 96361; 96365; 96375

== ENCOUNTER 2019-11-29 21:40 | Observation (INO) | payer MEDICARE, MEDICAID ==
[~2019-11-29] VITALS: Ht 162.5 cm; Wt 81.8 kg
[~2019-11-29 21:40] MED LIST changes: +BUPR1FIL3 SL; +CEFD300C3 PO; +CHLO500T4 PO; +FLUO20CA42 PO; +GUAI400T85 PO; +LEVA1.2543 IH; +LISI1TAB25 PO; +METF500T19 PO; +QUET100T PO; +QUET100T69 PO; +RT-ALBUINH IH; +SIMV20TA26 PO
--- NOTE | 2019-11-29 21:51 | ED General ---
General Chief Complaint: Altered Mental Status Stated Complaint: AMS Source of Information: Patient Exam Limitations: No Limitations (ZARA LAFLEUR APRN) History of Present Illness Date Seen by Provider: Nov 29, 2019 Time Seen by Provider: 21:49 Initial Comments To ER by EMS from home in [place] with reports of altered mental status and slurred speech throughout the day today. Unknown time of onset. No left or right-sided deficit was noted by EMS. Timing/Duration: 1/2 Hour Severity: Moderate (ZARA LAFLEUR APRN) Allergies and Home Medications Allergies Coded Allergies: fentanyl (Unverified Allergy, Unknown, 01/25/13) Uncoded Allergies: phentanyl (Allergy, Unknown, 06/30/18) Home Medications Albuterol Sulfate 2.5 Mg/3 Ml Vial.neb, 2.5 MG IH Q4H PRN for WHEEZING Prescribed by: ZARA LAFLEUR on 06/30/18 1304 Buprenorphine HCl/Naloxone HCl 1 Each Film, 1 EACH SL BID, (Reported) Cefdinir 300 Mg Capsule, 300 MG PO BID Prescribed by: SHAMA VITAL on 10/12/19 1056 Chlorzoxazone 500 Mg Tablet, 500 MG PO TID, (Reported) Fluoxetine HCl 20 Mg Capsule, 20 MG PO HS, (Reported) Guaifenesin 400 Mg Tablet, 400 MG PO BID, (Reported) Levalbuterol HCl 1.25 Mg/3 Ml Vial.neb, 1.25 MG IH Q8H PRN for WHEEZING, (Reported) Lisinopril/Hydrochlorothiazide 1 Each Tablet, 1 EACH PO HS, (Reported) Metformin HCl 500 Mg Tab.er.24h, 1,000 MG PO DAILY, (Reported) Quetiapine Fumarate 100 Mg Tablet, 100 MG PO HS, (Reported) Quetiapine Fumarate 100 Mg Tablet, 100 MG PO HS PRN for INSOMNIA, (Reported) TAKES A FEW HOURS AFTER INITAL DOSE IF SLEEP IS NOT ACHIEVED Simvastatin 20 Mg Tablet, 20 MG PO HS, (Reported) Patient Home Medication List Home Medication List Reviewed: Yes (ZARA LAFLEUR APRN) Review of Systems Review of Systems Constitutional: see HPI (ZARA LAFLEUR APRN) Past Onzwrqx-Doycsw-Dxxgym Hx Patient Social History Alcohol Use: Denies Use Recreational Drug Use: Yes (RECOVERING METH ADDICT) Type Used: Cigarettes 2nd Hand Smoke Exposure: Yes Recent Foreign Travel: No Contact w/Someone Who Travel: No Recent Hopitalizations: No (ZARA LAFLEUR APRN) Immunizations Up To Date Tetanus Booster (TDap): Less than 5yrs Date of Influenza Vaccine: Jul 18, 2019 (ZARA LAFLEUR APRN) Seasonal Allergies Seasonal Allergies: Yes (ZARA LALFEUR APRN) Past Medical History Surgeries: Yes (carpal tunnel; "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") Section, Gallbladder Respiratory: Yes Sleep Apnea Currently Using CPAP: No Currently Using BIPAP: No Cardiac: Yes High Cholesterol, Hypertension Neurological: Yes (chronic back) Reproductive Disorders: No SAP DATA ARCHITECT History: Menopausal Sexually Transmitted Disease: No Genitourinary: No Gastrointestinal: Yes (HERNIA) Hiatal Hernia, Gall Bladder Disease Musculoskeletal: No Degenerate Disk Disease, Chronic Back Pain Endocrine: Yes Diabetes, Non-Insulin dep HEENT: No Cancer: No Psychosocial: Yes Anxiety, Depression Blood Disorders: No (ZARA LAFLEUR APRN) Physical Exam Vital Signs Vital Signs - First Documented 11/29/19 21:42 Temp 36.2 Pulse 84 Resp 25 B/P (MAP) 121/89 (100) Pulse Ox 97 O2 Delivery Nasal Cannula O2 Flow Rate 2.00 (DEBBIE MIGUEL MD) Vital Signs Capillary Refill : (ZARA LAFLEUR APRN) Height, Weight, BMI Height: 5'4.00" Weight: 220lbs. oz. [id number]; 30.00 BMI Method:Stated General Appearance: No Apparent Distress, Chronically ill, Other (lethargic, oriented to person, time, not the place. She believes she is in [place]. She makes references to being on a skateboard. Conversation is difficult to follow due to slurred speech/lethargy.) HEENT: PERRL/EOMI, TMs Normal Respiratory: No Accessory Muscle Use, No Respiratory Distress Gastrointestinal: Non Tender, Soft Extremity: Normal Capillary Refill, Normal Inspection Neurologic/Psychiatric: Other (oriented 2, moves all extremities) Skin: Normal Color, Warm/Dry (ZARA LAFLEUR APRN) Progress/Results/Core Measures Suspected Sepsis SIRS Temperature: Pulse: Respiratory Rate: Blood Pressure / Mean: (ZARA LAFLEUR APRN) Results/Orders Lab Results Laboratory Tests Test 11/29/19 21:45 11/29/19 21:58 11/29/19 22:10 11/29/19 23:35 Range/Units White Blood Count 7.1 4.3-11.0 10^3/uL Red Blood Count 4.26 L 4.35-5.85 10^6/uL Hemoglobin 12.2 11.5-16.0 G/DL Hematocrit 39 35-52 % Mean Corpuscular Volume 91 80-99 FL Mean Corpuscular Hemoglobin 29 25-34 PG Mean Corpuscular Hemoglobin Concent 32 32-36 G/DL Red Cell Distribution Width 14.7 H 10.0-14.5 % Platelet Count 205 130-400 10^3/uL Mean Platelet Volume 8.6 7.4-10.4 FL Neutrophils (%) (Auto) 70 42-75 % Lymphocytes (%) (Auto) 20 12-44 % Monocytes (%) (Auto) 8 0-12 % Eosinophils (%) (Auto) 2 0-10 % Basophils (%) (Auto) 0 0-10 % Neutrophils # (Auto) 5.0 1.8-7.8 X 10^3 Lymphocytes # (Auto) 1.4 1.0-4.0 X 10^3 Monocytes # (Auto) 0.5 0.0-1.0 X 10^3 Eosinophils # (Auto) 0.1 0.0-0.3 10^3/uL Basophils # (Auto) 0.0 0.0-0.1 10^3/uL Sodium Level 141 135-145 MMOL/L Potassium Level 3.3 L 3.6-5.0 MMOL/L Chloride Level 100 98-107 MMOL/L Carbon Dioxide Level 33 H 21-32 MMOL/L Anion Gap 8 5-14 MMOL/L Blood Urea Nitrogen 16 7-18 MG/DL Creatinine 0.63 0.60-1.30 MG/DL Estimat Glomerular Filtration Rate > 60 BUN/Creatinine Ratio 25 Glucose Level 104 70-105 MG/DL Calcium Level 9.4 8.5-10.1 MG/DL Corrected Calcium 9.5 8.5-10.1 MG/DL Total Bilirubin 0.4 0.1-1.0 MG/DL Aspartate Amino Transf (AST/SGOT) 27 5-34 U/L Alanine Aminotransferase (ALT/SGPT) 34 0-55 U/L Alkaline Phosphatase 173 H 40-136 U/L Total Protein 6.8 6.4-8.2 GM/DL Albumin 3.9 3.2-4.5 GM/DL Glucometer 110 70-110 MG/DL Urine Color DARK YELLOW Urine Clarity CLEAR Urine pH 5.0 5-9 Urine Specific [place] >=1.030 1.016-1.022 Urine Protein TRACE H NEGATIVE Urine Glucose (UA) TRACE H NEGATIVE Urine Ketones 1+ H NEGATIVE Urine Nitrite NEGATIVE NEGATIVE Urine Bilirubin 3+ H NEGATIVE Urine Urobilinogen 1.0 < = 1.0 MG/DL Urine Leukocyte Esterase NEGATIVE NEGATIVE Urine RBC (Auto) NEGATIVE NEGATIVE Urine RBC 2-5 H /HPF Urine WBC RARE /HPF Urine Squamous Epithelial Cells 0-2 /HPF Urine Renal Epithelial Cells RARE /HPF Urine Crystals NONE /LPF Urine Bacteria TRACE /HPF Urine Casts PRESENT /LPF Urine Hyaline Casts 2-5 H /LPF Urine Mucus MODERATE H /LPF Urine Culture Indicated NO Urine Opiates Screen NEGATIVE NEGATIVE Urine Oxycodone Screen NEGATIVE NEGATIVE Urine Methadone Screen NEGATIVE NEGATIVE Urine Propoxyphene Screen NEGATIVE NEGATIVE Urine Barbiturates Screen NEGATIVE NEGATIVE Ur Tricyclic Antidepressants Screen POSITIVE H NEGATIVE Urine Phencyclidine Screen NEGATIVE NEGATIVE Urine Amphetamines Screen NEGATIVE NEGATIVE Urine Methamphetamines Screen NEGATIVE NEGATIVE Urine Benzodiazepines Screen POSITIVE H NEGATIVE Urine Cocaine Screen NEGATIVE NEGATIVE Urine Cannabinoids Screen NEGATIVE NEGATIVE Blood Gas Puncture Site LRAD Blood Gas Patient Temperature 36.7 Arterial Blood pH 7.34 *L 7.37-7.43 Arterial Blood Partial Pressure CO2 60 H 35-45 MMHG Arterial Blood Partial Pressure O2 79 79-93 MMHG Arterial Blood HCO3 32 H 23-27 MMOL/L Arterial Blood Total CO2 33.6 H 21.0-31.0 MMOL/L Arterial Blood Oxygen Saturation 96 94-100 % Arterial Blood Base Excess 6.2 H -2.5-2.5 MMOL/L Dwayne Test YES-POS Blood Gas Ventilator Setting NO Blood Gas Inspired Oxygen 2L (DEBBIE MIGUEL MD) My Orders Orders - DEBBIE MIGUEL MD Lactated Ringers (Lr 1000 Ml Iv Solution (11/29/19 22:59) Arterial Blood Gas (11/29/19 23:30) (DEBBIE MIGUEL MD) Medications Given in ED Current Medications Medications Dose Ordered Sig/[place] Route Start Time Stop Time Status Last Admin Dose Admin Lactated Ringer's 1,000 ml @ 0 mls/hr Q0M ONCE IV 11/29/19 22:59 11/29/19 23:00 DC 11/29/19 23:03 1,000 MLS/HR (DEBBIE MIGUEL MD) Vital Signs/I&O 11/29/19 11/29/19 21:42 23:23 Temp 36.2 Pulse 84 Resp 25 B/P (MAP) 121/89 (100) Pulse Ox 97 94 O2 Delivery Nasal Cannula Nasal Cannula O2 Flow Rate 2.00 2.00 (DEBBIE MIGUEL MD) Vital Signs/I&O Capillary Refill : (ZARA LAFLEUR APRN) Progress Note : Progress Note 2300: Assumed care of the patient from. DENNIS Lafleur pending CT. Patient was found to have had recent prescription of benzodiazepines as she has been out of her Suboxone and her prescriber has not reinitiated prescription at [facility] per the family. Another physician did prescribe her Xanax apparently per the family until the new prescription can be obtained. Patient has been taking that. She has been increasingly drowsy today and found to be worse tonight. Patient is answering questions but mumbling and tired. She moves all extremities. No obvious focal deficits. CT negative. 0001: I did discuss the case with Dr. Gonsalves. We have done ABG which shows slightly elevated CO2 but we'll compensated with some slough normal pH. Patient has blood pressure 100/7 days a heart rate in the 60s. She did receive 1 L of LR. We will continue gentle hydration and monitoring. At this point it does appear that she has accidental overdose of benzos likely given that other findings are negative. She will need monitoring and she is still quite drowsy. This was discussed with the family who agrees. Dr. Gonsalves accepts patient for admission, observation status. Patient agrees to plan. (DEBBIE MIGUEL MD) Diagnostic Imaging Diagonstic Imaging: Xray Plain Films/CT/US/NM/MRI: chest Comments Enlarged cardiac silhouette without obvious infiltrate Diagonstic Imaging: CT Plain Films/CT/US/NM/MRI: head Comments Negative head CT. Mild cervical spondylosis worst at C6/C7 with no cervical fracture. Reviewed: [facility] (DEBBIE [facility]IGU[facility]) Departure Communication (Admissions) Time/Spoke to Admitting Phy: 00:01 (DEBBIE MIGUEL MD) Impression Primary Impression: Accidental overdose Qualified Codes: T50.901A - Poisoning by unspecified drugs, medicaments and biological substances, accidental (unintentional), initial encounter Additional Impression: Altered mental status Qualified Codes: R41.0 - Disorientation, unspecified Disposition: 09 ADMITTED INPATIENT Condition: Stable Admissions Decision to Admit Reason: Admit from ER (General) Decision to Admit/Date: Nov 30, 2019 Time/Decision to Admit Time: 00:01 (DEBBIE MIGUEL MD) Departure-Patient Inst. Referrals: SANTINO COREA MD (PCP/Family) Primary Care Physician ZARA LAFLEUR APRN Nov 29, 2019 21:51 DEBBIE MIGUEL MD Nov 30, 2019 00:12
[2019-11-29 21:58] LABS: BASOPHILS % (AUTO) 0 % (0-10); EOSINOPHILS # (AUTO) 0.1 10^3/uL (0.0-0.3); EOSINOPHILS % (AUTO) 2 % (0-10); HEMATOCRIT 39 % (35-52); HEMOGLOBIN 12.2 G/DL (11.5-16.0); LYMPHOCYTES # (AUTO) 1.4 X 10^3 (1.0-4.0); LYMPHOCYTES % (AUTO) 20 % (12-44); MEAN CORPUSCULAR HEMOGLOBIN 29 PG (25-34); MEAN CORPUSCULAR HGB CONC 32 G/DL (32-36); MEAN CORPUSCULAR VOLUME 91 FL (80-99); MEAN PLATELET VOLUME 8.6 FL (7.4-10.4); MONOCYTES # (AUTO) 0.5 X 10^3 (0.0-1.0); MONOCYTES % (AUTO) 8 % (0-12); NEUTROPHILS % (AUTO) 70 % (42-75); PLATELET COUNT 205 10^3/uL (130-400); RED CELL DISTRIBUTION WIDTH 14.7 % (10.0-14.5); WHITE BLOOD COUNT 7.1 10^3/uL (4.3-11.0)
[2019-11-29 22:14] LABS: ALANINE AMINOTRANSFERASE 34 U/L (0-55); ALBUMIN 3.9 GM/DL (3.2-4.5); ALKALINE PHOSPHATASE 173 U/L (40-136); BILIRUBIN,TOTAL 0.4 MG/DL (0.1-1.0); BUN/CREATININE RATIO 25; CALCIUM 9.4 MG/DL (8.5-10.1); CARBON DIOXIDE 33 MMOL/L (21-32); CHLORIDE 100 MMOL/L (98-107); CREATININE SERUM 0.63 MG/DL (0.60-1.30); GFR ESTIMATED > 60; GLUCOSE 104 MG/DL (70-105); POTASSIUM 3.3 MMOL/L (3.6-5.0); SODIUM 141 MMOL/L (135-145); TOTAL PROTEIN 6.8 GM/DL (6.4-8.2)
[2019-11-29 22:25] LABS: CLARITY,URINE CLEAR; COLOR,URINE DARK YELLOW; GLUCOSE, URINE (UA) TRACE (NEGATIVE); KETONES,URINE 1+ (NEGATIVE); LEUKOCYTE ESTERASE ,URINE NEGATIVE (NEGATIVE); NITRITE,URINE NEGATIVE (NEGATIVE); PROTEIN,URINE TRACE (NEGATIVE)
[2019-11-29 22:36] LABS: AMPHETAMINE SCREEN, URINE NEGATIVE (NEGATIVE); BARBITURATE SCREEN URINE NEGATIVE (NEGATIVE); BENZODIAZEPINES SCREEN URINE POSITIVE (NEGATIVE); CANNABINOID SCREEN, URINE NEGATIVE (NEGATIVE); COCAINE SCREEN URINE NEGATIVE (NEGATIVE); METHADONE STAT NEGATIVE (NEGATIVE); METHAMPHETAMINE SCREEN URINE S NEGATIVE (NEGATIVE); OPIATE SCREEN URINE NEGATIVE (NEGATIVE); OXYCODONE STAT NEGATIVE (NEGATIVE); PROPOXYPHENE STAT NEGATIVE (NEGATIVE); TRICYCLIC ANTIDEPRESSANTS SCRE POSITIVE (NEGATIVE)
[2019-11-29 22:47] LABS: BACTERIA,URINE TRACE /HPF; RENAL EPITHELIAL CELLS,URINE RARE /HPF; SQUAMOUS EPITHELIAL CELL,UR 0-2 /HPF; WBC,URINE RARE /HPF
[2019-11-29] MEDS ORDERED: LACTATED RINGERS 1,000 ML IV ONE (22:59)
--- NOTE | 2019-11-29 23:27 | NUR ---
report given to Junior
[2019-11-29 23:40] LABS: ABG BASE EXCESS 6.2 MMOL/L (-2.5-2.5); ABG OXYGEN SATURATION 96 % (94-100); ABG PCO2 60 MMHG (35-45); ABG PO2 79 MMHG (79-93); ABG TCO2 33.6 MMOL/L (21.0-31.0)
[2019-11-29 23:43] LABS: ALLENS TEST YES-POS; INSPIRED O2 2L; PATIENT TEMP 36.7; VENTILATOR NO
[2019-11-29 23:44] LABS: ABG PH 7.34 (7.37-7.43)
[2019-11-30 00:50] VITALS: BP 127/64
[2019-11-30] MEDS ORDERED: KETOROLAC 30 MG/ML VIAL ONE (00:52)
[2019-11-30] MEDS ORDERED: KETOROLAC 15 MG/ML VIAL IVP PRN (01:15)
[2019-11-30] MEDS ORDERED: ONDANSETRON 4 MG/2 ML (SDV) Z0FRAN IV PRN (01:15)
[2019-11-30] MEDS ORDERED: ENOXAPARIN 40 MG/0.4 ML (LOVENOX) SYR SC SCH (01:15)
[2019-11-30] MEDS ORDERED: ACETAMINOPHEN 500 MG TAB (TYLENOL) PO PRN (01:30)
[2019-11-30] MEDS: LACTATED RINGERS 1,000 ML IV SCH ×2 (02:08→10:39)
[2019-11-30 04:07] VITALS: BP 127/64
[2019-11-30] MEDS ORDERED: RT-ALBUTEROL/IPRATROPIUM 3 ML (DUONEB) VIAL INH STA (04:17)
[2019-11-30 04:46] VITALS: BP 128/63
--- NOTE | 2019-11-30 06:34 | Diagnostic Imaging Report ---
PROCEDURE: CT head without contrast. TECHNIQUE: Multiple contiguous axial images were obtained through the brain without the use of intravenous contrast. Auto Exposure Controls were utilized during the CT exam to meet ALARA standards for radiation dose reduction. INDICATION: Confusion, mental status changes. FINDINGS: Noncontrast CT scan of the head demonstrates no mass effect, midline shift, hemorrhage or extra-axial fluid collections. The fleming-white matter differentiation is normal. The ventricles, cortical sulci and basilar cisterns are normal. There is a 2.5 cm mucous retention cyst or possibly polyp in the right maxillary sinus. IMPRESSION: 1. Normal intracranial contents. 2. Right maxillary sinus disease. Dictated by: Dictated on workstation # [id number]
--- NOTE | 2019-11-30 07:00 | Diagnostic Imaging Report ---
INDICATION: Confusion COMPARISON STUDY: Chest from December 10. FINDINGS: Frontal view of the chest demonstrates stable borderline cardiomegaly. Right-sided pulmonary infiltrates have cleared. The vascularity is normal. There are no pleural effusions. IMPRESSION: There is stable mild cardiomegaly with resolution of the previous infiltrates. Dictated by: Dictated on workstation # [id number]
[2019-11-30] MEDS: RT-ALBUTEROL/IPRATROPIUM 3 ML (DUONEB) VIAL INH SCH ×2 (07:32→11:18)
[2019-11-30 08:29] VITALS: BP 130/64
[2019-11-30 10:27] VITALS: BP 121/89
--- NOTE | 2019-11-30 11:21 | Short Stay Summary-Hospitalist ---
History of Present Illness HPI/Chief Complaint CC: Accidental overdose of Xanax and Elavil HPI: This is a 69yoWF that accidentally took a couple of Xanax and Elavil tablets last night, was very lethargic, was in need of placement in observation status with IV fluids and Telemetry. Everything returned back to normal with labs, she was awake and alert and was ready for discharge. Pt had no intention of harming herself, it was accidental. Source: patient Exam Limitations: no limitations Date Seen 11/30/19 Time Seen by a Provider: 10:30 Attending Physician Qian Gonsalves Julie A MD Referring Physician Date of Admission Nov 30, 2019 at 00:05 Home Medications & Allergies Home Medications Reviewed patient Home Medication Reconciliation performed by pharmacy medication reconciliations quality technician fiberglass and/or nursing. Patients Allergies have been reviewed. Allergies Allergies Coded Allergies fentanyl (Unverified Allergy, Unknown, 01/25/13) Uncoded Allergies phentanyl ( Allergy, Unknown, 06/30/18) Past Iegbuwd-Xdmmyc-Owtmsf Hx Past Med/Social Hx: Reviewed Nursing Past Med/Soc Hx, Reviewed and Corrections made Patient Social History Marrital Status: single Employed/Student: retired Alcohol Use: Denies Use Recreational Drug Use: Yes (RECOVERING METH ADDICT) Smoking Status: Former Smoker Type Used: Cigarettes 2nd Hand Smoke Exposure: Yes Recent Foreign Travel: No Contact w/other who traveled: No Recent Hopitalizations: No Recent Infectious Disease Expo: No Immunizations Up To Date Tetanus Booster (TDap): Less than 5yrs Date of Pneumonia Vaccine: Nov 30, 2017 Date of Influenza Vaccine: Jul 18, 2019 Seasonal Allergies Seasonal Allergies: Yes Past Medical History Surgeries: Section, Gallbladder Respiratory: Asthma, Chronic Bronchitis, COPD, Emphysema, Pneumonia Currently Using CPAP: No Currently Using BIPAP: No Cardiac: High Cholesterol, Hypertension : No Reproductive: No Sexually Transmitted Disease: No Menopausal Gastrointestinal: Hiatal Hernia, Gall Bladder Disease Musculoskeletal: Degenerate Disk Disease, Chronic Back Pain Endocrine: Diabetes, Non-Insulin dep Psychosocial: Anxiety, Depression History of Blood Disorders: No Review of Systems Constitutional: see HPI, dizziness, malaise, weakness Physical Exam Physical Exam Vital Signs Vital Signs - First Documented 11/29/19 11/30/19 21:42 04:07 Temp 36.2 Pulse 84 Resp 25 B/P (MAP) 121/89 (100) Pulse Ox 97 O2 Delivery Nasal Cannula O2 Flow Rate 2.00 FiO2 24 Capillary Refill : Less Than 3 SecondsLess Than 3 Seconds Height, Weight, BMI Height: 5'4.00" Weight: 220lbs. oz. 99.684824zp; 30.97 BMI Method:Stated General Appearance: No Apparent Distress, Chronically ill, Other (lethargic, oriented to person, time, not the place. She believes she is in [place]. She makes references to being on a skateboard. Conversation is difficult to follow due to slurred speech/lethargy.) HEENT: PERRL/EOMI, TMs Normal Respiratory: No Accessory Muscle Use, No Respiratory Distress Gastrointestinal: Non Tender, Soft Extremity: Normal Capillary Refill, Normal Inspection Neurologic/Psychiatric: Other (oriented 2, moves all extremities) Skin: Normal Color, Warm/Dry Results Results/Procedures Labs Laboratory Tests 11/29/19 21:45 Patient resulted labs reviewed. Short Stay Diagnosis Discharge Diagnosis-Short Stay Admission Diagnosis Accidental OD Final Discharge Diagnosis Accidental OD Conclusion Plan DC home since stable Diagnosis/Problems Diagnosis/Problems (1) Accidental overdose Status: Acute Qualifiers: Qualified Codes: T50.901A - Poisoning by unspecified drugs, medicaments and biological substances, accidental (unintentional), initial encounter Clinical Quality Measures DVT/VTE Risk/Contraindication: Risk Factor Score Per Nursin RFS Level Per Nursing on Admit: 3=High QIAN GONSALVES DO Nov 30, 2019 11:21
[2019-11-30] MEDS ORDERED: RT-ALBUTEROL/IPRATROPIUM 3 ML (DUONEB) VIAL INH PRN (12:00)
[2019-11-30 12:26] VITALS: BP 136/69
--- NOTE | 2019-11-30 13:05 | NUR ---
Patient alert and oriented x4, catheter removed, patient ambulated with standby assitance to bathroom and voided without difficulty. Patient had a regular tray for lunch and consumed 100% without any difficulty or n/v.
[2019-11-30 15:49] LABS: BILIRUBIN,URINE 3+ (NEGATIVE)
== END 2019-11-30 13:30 | disposition home or self-care (01) ==
LOC: EDUNIT# 21:40 → ER 21:42 → 4TH 11-30 00:05
PROVIDERS: ADMIT Internal Medicine; ATTEND Internal Medicine
DX: T42.4X1A Poisoning by benzodiazepines, accidental (unintentional), initial encounter (principal); J43.9 Emphysema, unspecified; E78.00 Pure hypercholesterolemia, unspecified; I10 Essential (primary) hypertension; E11.9 Type 2 diabetes mellitus without complications; F41.9 Anxiety disorder, unspecified; F32.9 Major depressive disorder, single episode, unspecified; G89.29 Other chronic pain; M54.9 Dorsalgia, unspecified; Z90.49 Acquired absence of other specified parts of digestive tract; Z87.891 Personal history of nicotine dependence; Z88.8 Allergy status to other drugs, medicaments and biological substances
CPT/HCPCS: 36415; 51702; 70450; 71045; 80053; 80306; 81000; 82805; 82962; 85025; 94640; 94762; G0378